=== PATIENT | female | born 1980 | race Caucasian/White ===

== ENCOUNTER 2021-08-19 20:50 | Inpatient (IN) | payer MEDICAID, SELFPAY ==
[2021-08-19 21:31] VITALS: BP 127/66; PULSE 98; RESP 30; TEMP 37.4; O2SAT 84
[2021-08-19 21:35] VITALS: O2SAT 94
--- NOTE | 2021-08-19 21:36 | XRR_ITS ---
PROCEDURE INFORMATION: Exam: XR Chest Exam date and time: 08/19/2021 9:36 PM Age: 41 years old Clinical indication: Cough and shortness of breath; Patient HX: Cough with SOB. Covid + on 08/14/2021. TECHNIQUE: Imaging protocol: XR of the chest. Views: 1 view. COMPARISON: No relevant prior studies available. FINDINGS: Lungs: Patchy scattered ground-glass opacities mostly peripheral in both lungs. Reduced lung volumes. Pleural spaces: Unremarkable. No pleural effusion. No pneumothorax. Heart/Mediastinum: Unremarkable. No cardiomegaly. Bones/joints: Unremarkable. XR/XR chest 1V portable [id number] IMPRESSION: Patchy airspace lesions in both lungs consistent with atypical pneumonia which would include COVID-19 infection.
--- NOTE | 2021-08-19 21:36 | ECG_ITS ---
[facility] Test Date: 2021-08-19 Pat Name: Rimma Vera Department: Room: Gender: Female Pcas: : 1980 Requested By: Jimmy Gilliam Order Number: [id number] Reading MD: TRACIE WOOD Measurements Intervals [place] Rate: 89 P: 18 WI: 166 QRS: 16 QRSD: 81 T: 19 QT: 346 QTc: 422 Interpretive Statements SINUS RHYTHM LOW QRS VOLTAGE IN PRECORDIAL LEADS [QRS DEFLECTION < 1.0 mV IN CHEST LEADS] No previous ECG available for comparison Electronically Signed On 08-20-2021 19:58:37 CONSTRUCTION MANAGEMENT ASSISTANT by TRACIE WOOD [id number]
[2021-08-19 21:37] VITALS: O2SAT 93
--- NOTE | 2021-08-19 21:51 | ED_ITS ---
HPI - COVID General: Chief Complaint: COVID symptoms Stated Complaint: Covid + SOB Time Seen by Provider: 08/19/21 21:30 Triage information: Has fever, cough or shortness of breath . Exposure to COVID + person last 14 days History of Present Illness: MD complaint: known COVID positive Prior covid testing: yes, results known COVID 19 common symptoms: positive fever(s), chills, cough, non-productive cough, dyspnea, fatigue, body aches, headache(s), loss of sense of smell and/or taste, nausea and diarrhea; negative vomiting COVID 19 other sytmptoms: positive chest pain and requiring oxygen; negative cyanosis or confusion Onset (ago): day(s) Severity: severe and slowly worsening Treatment prior to arrival: cold medicine COVID Results: No Data to Display Review of Systems Const: Reports: fever(s), chills, body aches and fatigue Card: Reports: chest pain Resp: Reports: dyspnea and non-productive cough GI: Reports: nausea and diarrhea; Denies: vomiting Neuro: Reports: headache(s); Denies: confusion PFSH ED PFSH: Social History Smoking and tobacco status: former smoker Physical Exam Const: COMMON NORMALS: patient oriented x3 and alert GENERAL APPEARANCE: cooperative, in distress and ill appearing HENMT: COMMON NORMALS: normocephalic and atraumatic HEAD & SCALP: normocephalic and atraumatic Eye: COMMON NORMALS: Equal, round and reactive pupils present and EOMs intact bilaterally PUPIL: Yes Equal, round and reactive pupils present Chest: COMMONS NORMALS: normal inspection of the chest Resp: COMMON NORMALS: clear to auscultation bilaterally EFFORT & INSPECTION: Yes tachypneic and Yes respiratory distress AUSCULTATION: clear to auscultation bilaterally and diminished lung sounds Cardio: COMMON NORMALS: regular rhythm RATE: tachycardic RHYTHM: regular rhythm GI: COMMON NORMALS: Normal to inspection, nondistended, normoactive bowel sounds present Neuro: COMMON NORMALS: patient oriented x3 SENSORIUM/ORIENTATION: Yes alert Course Consultations: Consultation #1: dayan Time: 00:57 Vital Signs: Vital signs: Vital Signs Temperature 99.3 F 08/19/21 21:31 Pulse Rate 100 08/20/21 00:25 Respiratory Rate 20 H 08/20/21 00:25 Blood Pressure 112/63 08/20/21 00:25 Pulse Oximetry 92 08/20/21 00:25 MDM - COVID MDM Narrative: Medical decision making narrative: 41-year-old female with known Covid. Worsening shortness of breath over the past few days. She is on 3 L now satting 90%. Her respiratory rate has come down from 40s to 20s. She is more comfortable. Chest x-ray shows bilateral infiltrates. D-dimer was elevated. CTA shows groundglass infiltrates that are widespread. No pneumothorax, no pulmonary embolus. Her white count is 3.1. BMP is essentially normal. CRP is elevated. She will come in for COVID-19 pneumonia. Lab Data: Labs: Lab Results 08/19/21 08/19/21 08/19/21 21:40 21:40 21:40 WBC 3.1 10^3/uL L 10^ 3/uL (4.0-10.0) RBC 4.84 10^6/uL 10^6 /uL (4.1-5.3) Hgb 13.1 g/dL g/dL (11.5-15.3) Hct 40.8 % % (37.0-47.0) MCV 84.3 fl fl (81-99) MCH 27.1 pg L pg (28.0-34.0) MCHC 32.1 g/dL g/dL (30.0-36.0) RDW 13.1 % % (12.1-15.1) Plt Count 167 10^3/cmm 10^3 /cmm (130-400) MPV 10.6 fL H fL (7.4-10.4) Neut % (Auto) 76.9 % % Lymph % (Auto) 17.7 % % [place] % (Auto) 5.1 % % Eos % (Auto) 0.0 % % Baso % (Auto) 0.0 % % Neut # (Auto) 2.39 10^3/uL 10^3 /uL (1.8-7.7) Lymph # (Auto) 0.6 10^3/uL L 10^ 3/uL (0.8-4.8) [place] # (Auto) 0.2 10^3/uL 10^3/ uL (0.2-0.9) Eos # (Auto) 0.0 10^3/uL 10^3/ uL (0.0-0.8) Baso # (Auto) 0.0 10^3/uL 10^3/ uL (0.0-0.1) Nucleated RBC % (a uto) 0 % % Nucleated RBCs # 0.0 /100WBC /100W BC D-Dimer 1.00 ug/mIFEU H u g/mIFEU (0-0.59) Sodium 134 mmol/L L mmol /L (136-145) Potassium 3.8 mmol/L mmol/L (3.5-5.1) Chloride 95 mmol/L L mmol/ L (98-107) Carbon Dioxide 23 mmol/L mmol/L (22-29) Anion Gap 19.8 H (5-19) BUN 6 mg/dL mg/dL (6-20) Creatinine 0.5 mg/dL mg/dL (0.5-0.9) GFR Calculation 136.6 mL/min H mL /min (90-130) Glucose 153 mg/dL H mg/dL (65-115) Calculated Osmolal ity 279 mOsm/kg L mOs m/kg (285-295) Lactic Acid Calcium 8.1 mg/dL L mg/dL (8.5-10.5) Total Bilirubin 0.4 mg/dL mg/dL (0.15-1.2) AST 48 U/L H U/L (0-32) ALT 24 U/L U/L (0-33) Alkaline Phosphata se 44 IU/L IU/L (35-105) Lactate Dehydrogen ase 468 U/L H U/L (135-214) Troponin T Gen 5 n g/L C-Reactive Protein 51.8 mg/L H mg/L (0.0-4.9) NT-Pro-B Natriuret Pep 14 pg/mL pg/mL (0-125) Total Protein 7.0 g/dL g/dL (6.6-8.7) Albumin 3.8 g/dL g/dL (3.5-5.2) Globulin 3.2 g/dL g/dL (1.3-4.6) Procalcitonin 0.07 ng/mL ng/mL (0-0.5) 08/19/21 08/19/21 21:40 21:40 WBC RBC Hgb Hct MCV MCH MCHC RDW Plt Count MPV Neut % (Auto) Lymph % (Auto) [place] % (Auto) Eos % (Auto) Baso % (Auto) Neut # (Auto) Lymph # (Auto) [place] # (Auto) Eos # (Auto) Baso # (Auto) Nucleated RBC % (a uto) Nucleated RBCs # D-Dimer Sodium Potassium Chloride Carbon Dioxide Anion Gap BUN Creatinine GFR Calculation Glucose Calculated Osmolal ity Lactic Acid 1.3 mmol/L mmol/L (0.5-2.2) Calcium Total Bilirubin AST ALT Alkaline Phosphata se Lactate Dehydrogen ase Troponin T Gen 5 n g/L 6 ng/L ng/L (0-10) C-Reactive Protein NT-Pro-B Natriuret Pep Total Protein Albumin Globulin Procalcitonin COVID Results: No Data to Display Discharge Plan Discharge Patient Disposition: Admitted As Inpatient Admit Provider: Shanna Zuleta Clinical Impression: Pneumonia due to 2019 novel coronavirus, Acute respiratory failure with hypoxemia Condition: Serious Coding Level of Care Code 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
[2021-08-19] MEDS: dexamethasone 4 mg/mL INJ 6 MG IVP (22:03)
[2021-08-19 22:16] VITALS: BP 112/63; PULSE 93; RESP 18; O2SAT 100
[2021-08-19 22:24] LABS: Hematocrit 40.8 % (37.0-47.0); Hemoglobin 13.1 g/dL (11.5-15.3); Lymphocytes # 0.6 10^3/uL (0.8-4.8); Lymphocytes % 17.7 %; Mean Corpuscular HGB Conc 32.1 g/dL (30.0-36.0); Mean Corpuscular Hemoglobin 27.1 pg (28.0-34.0); Mean Corpuscular Volume 84.3 fl (81-99); Mean Platelet Volume 10.6 fL (7.4-10.4); Monocytes # 0.2 10^3/uL (0.2-0.9); Monocytes % 5.1 %; Neutrophils # 2.39 10^3/uL (1.8-7.7); Neutrophils % 76.9 %; Nucleated Red Blood Cells % 0 %; Platelet Count 167 10^3/cmm (130-400); Red Blood Count 4.84 10^6/uL (4.1-5.3); Red Cell Distribution Width 13.1 % (12.1-15.1); White Blood Count 3.1 10^3/uL (4.0-10.0)
[2021-08-19 22:32] LABS: Troponin T (5th) Once 6 ng/L (0-10)
[2021-08-19 22:34] LABS: Lactic Sepsis W/Reflex 1.3 mmol/L (0.5-2.2)
[2021-08-19 22:36] LABS: Alanine Aminotransferase 24 U/L (0-33); Albumin Level 3.8 g/dL (3.5-5.2); Alkaline Phosphatase 44 IU/L (35-105); Anion Gap 19.8 (5-19); Aspartate Amino Transferase 48 U/L (0-32); Blood Urea Nitrogen 6 mg/dL (6-20); C Reactive Protein 51.8 mg/L (0.0-4.9); Calcium 8.1 mg/dL (8.5-10.5); Carbon Dioxide 23 mmol/L (22-29); Chloride 95 mmol/L (98-107); Globulin 3.2 g/dL (1.3-4.6); Glomerular Filtration Rate 136.6 mL/min (90-130); Glucose 153 mg/dL (65-115); Lactate Dehydrogenase 468 U/L (135-214); Osmolality Calculated 279 mOsm/kg (285-295); Potassium 3.8 mmol/L (3.5-5.1); Sodium 134 mmol/L (136-145); Total Bilirubin 0.4 mg/dL (0.15-1.2)
[2021-08-19 23:21] LABS: Slide Review Slide Review Perform
--- NOTE | 2021-08-19 23:45 | CTR_ITS ---
PROCEDURE INFORMATION: Exam: CTA Chest With Contrast Exam date and time: 08/19/2021 11:45 PM Age: 41 years old Clinical indication: Cough and shortness of breath; Patient HX: Cough with SOB. Elevated dimer. Covid +. ; Additional info: Chest pain TECHNIQUE: Imaging protocol: Computed tomographic angiography of the chest with contrast. 3D rendering (Not supervised by radiologist): MIP and/or 3D reconstructed images were created by the technologist. Radiation optimization: All CT scans at this facility use at least one of these dose optimization techniques: automated exposure control; mA and/or kV adjustment per patient size (includes targeted exams where dose is matched to clinical indication); or iterative reconstruction. Contrast material: OMNI 350; Contrast volume: 95 ml; Contrast route: INTRAVENOUS (IV); COMPARISON: CR (CHEST, ) 08/19/2021 10:20 PM RADIATION DOSE METRICS: Total DLP (mGy-cm): 1121.43 FINDINGS: Pulmonary arteries: Normal. No pulmonary emboli. Aorta: Unremarkable. No aortic aneurysm. No aortic dissection. Lungs: Patchy irregular ground-glass lesions widely distributed throughout both lungs. Negative for endobronchial obstruction. Reduced lung volumes. Pleural spaces: Unremarkable. No pneumothorax. No pleural effusion. Heart: Unremarkable. No cardiomegaly. No pericardial effusion. Lymph nodes: Unremarkable. No enlarged lymph nodes. Bones/joints: Unremarkable. No acute fracture. Soft tissues: Unremarkable. CT/CT angio chest PE protcl [id number] IMPRESSION: 1. Negative for pulmonary embolism. 2. Widespread ground-glass airspace disease in both lungs. 3. Commonly reported imaging features of COVID-19 pneumonia are present. Other processes such as influenza pneumonia and organizing pneumonia, as can be seen with drug toxicity and connective tissue disease, can cause a similar imaging pattern. (Reference: Oskar) REFERENCES: Oskar Crockett, et al., Radiological Society of [place] Expert Consensus Statement on Reporting Chest CT Findings Related to COVID-19. Endorsed by the Society of Thoracic Radiology, the [place] [employer], and RSNA. Published November 25, 2019.
[2021-08-19 23:47] LABS: NT Pro B Type Natriuretic Pept 14 pg/mL (0-125); Procalcitonin 0.07 ng/mL (0-0.5)
[2021-08-20] VITALS (18 sets, daily range): BP systolic 109–145; BP diastolic 63–88; PULSE 79–102; RESP 15–24; TEMP 36.6–37.5; O2SAT 88–93; BMI 44.2
[2021-08-20] MEDS: iohexol 350 mg/mL 100 mL Btl IV (00:15)
--- NOTE | 2021-08-20 01:12 | PM.HP ---
Providers/Chief Complaint Admitting Physician: Shanna Zuleta MD Chief Complaint: Covid + SOB History of Present Illness Rimma Vera is a 41 year old female , tested COVID positive earlier this week, presenting with shortness of breath, hypoxia, new oxygen requirement of 3lpm on NC. ROS + for diarrhea, nausea. CTA chest performed due to elevated D dimer, shows B/L extensive infiltrates c/w COVID pneumonia. Review of Systems General: Reports: 10 or more systems reviewed and unremarkable except in HPI and below Const: Denies: fever(s), chills or body aches Eyes: Denies: change in vision, blurry vision or photophobia ENMT: Denies: throat pain, enlarged tonsils, odynophagia or nasal congestion Card: Denies: chest pain, palpitations, irregular heart rhythm, edema, swelling of feet/ankles, lightheadedness, pre-syncope, dyspnea on exertion or orthopnea Resp: Denies: dyspnea, productive cough, non-productive cough, wheezing, stridor, pain on inspiration, change in phlegm color, hemoptysis or chest congestion GI: Denies: abdominal pain, nausea, vomiting, hematemesis, coffee ground emesis, dysphagia, heartburn, diarrhea, constipation, GI cramping, change in stool character, hematochezia or melena : Denies: flank pain, difficulty voiding, dysuria, urinary frequency, urinary urgency, urinary hesitancy or hematuria Musc: Denies: neck pain, back pain, extremity pain, joint swelling, joint warmth or deformity Neuro: Denies: headache(s), numbness in extremities, weakness in extremities, sensory changes, difficulty walking, frequent falls, dizziness, vertigo, behavioral changes, Slurred speech present or seizure-like activity Psych: Denies: anxiety, depression, suicidal ideation or homicidal ideation Endo: Denies: polyuria, polydipsia, tired all the time, cold intolerance or hot flashes Drew/Lymph: Denies: easy bruising or easy bleeding Medications/Allergies Home Medications Medication Instructions Recorded Confirmed Last Taken Type methocarbamol 750 mg tablet 750 mg PO TID 5 Days #15 tab 07/25/21 07/25/21 Unknown Rx prednisone 10 mg tablet 30 mg PO DAILY 5 Days #15 tab 07/25/21 07/25/21 Unknown Rx Allergies Allergy/AdvReac Type Severity Reaction Status Date / Time No Known Allergies Allergy Verified 07/25/21 11:11 PFSH Acute PFSH: Social History Smoking and tobacco status: former smoker Vitals/I&O/Wt Last Vital Signs Temp 99.3 F 08/19/21 21:31 Pulse 100 08/20/21 00:25 Resp 20 H 08/20/21 00:25 BP 112/63 08/20/21 00:25 Pulse Ox 92 08/20/21 00:25 Physical Exam Narrative: EXAM NARRATIVE: General: No acute distress, AO x3 HEENT: PERRLA, pupils bilaterally equal and reactive, pallors not present Chest: B/L coarse breath sounds CVS: S1-S2 regular, no murmurs, no tachycardia, no gallops, no rubs Abdomen: Soft, nontender, no organomegaly, bowel sounds present Neuro: No focal deficits, no facial deformity, AO x3, power 5/5 in all limbs Data : 08/19/21 21:40 08/19/21 21:40 Micro: Microbiology 08/19/21 21:50 Blood Culture - Preliminary Blood SPECIMEN COLLECTED 08/19/21 21:40 Blood Culture - Preliminary Blood SPECIMEN COLLECTED A&P Assessment and plan (1) Pneumonia due to 2019 novel coronavirus: Admit to med/surg Remdisivir 200mg iv x 1 followed by 100mg iv daily dexamethasone 6mg IVP daily duoneb q6h, budesonide q12h empiric CTX and azithromycin Flutter valve/spirometer at bedside trend inflammatory markers including CRP, D dimer CTA negative for PE Status: Acute (2) Acute respiratory failure with hypoxemia: secondary to COVID 19 pneumonia Status: Acute Attestations Medical Necessity Statement*: anticipate >2midnight admission for management of COVID 19 pneumonia Coding Level of Care Code 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
[2021-08-20] MEDS: cefTRIAXone 1,000 MG in sodium chloride 0.9% (plus) 50 ML 100 MG IV (01:29)
[2021-08-20] MEDS: enoxaparin 40 mg/0.4 mL Syringe SUBCUT (01:29)
[2021-08-20] MEDS: sodium chloride 0.9% 1,000 ML 75 ML IV (02:18)
[2021-08-20] MEDS: azithromycin 500 MG in sodium chloride 0.9% 250 ML 250 MG PO (02:46)
[2021-08-20] MEDS: ipratropium-albuterol 3 mL Neb INHALATION ×4 (03:11→14:29)
[2021-08-20 03:12] LABS: SARS Covid-2 Antigen Negative (Negative)
[2021-08-20] MEDS: remdesivir 200 MG in sodium chloride 0.9% (100 ml) 100 ML 100 MG IV (03:47)
[2021-08-20 06:27] LABS: Procalcitonin 0.07 ng/mL (0-0.5)
[2021-08-20 06:28] LABS: Alanine Aminotransferase 23 U/L (0-33); Albumin Level 3.2 g/dL (3.5-5.2); Alkaline Phosphatase 42 IU/L (35-105); Aspartate Amino Transferase 41 U/L (0-32); Blood Urea Nitrogen 6 mg/dL (6-20); Calcium 7.8 mg/dL (8.5-10.5); Carbon Dioxide 20 mmol/L (22-29); Chloride 99 mmol/L (98-107); Globulin 3.5 g/dL (1.3-4.6); Glomerular Filtration Rate 176.8 mL/min (90-130); Glucose 303 mg/dL (65-115); Osmolality Calculated 291 mOsm/kg (285-295); Sodium 136 mmol/L (136-145); Total Bilirubin 0.4 mg/dL (0.15-1.2); Total Protein 6.7 g/dL (6.6-8.7)
[2021-08-20 06:50] LABS: D Dimer 0.82 ug/mIFEU (0-0.59)
[2021-08-20] MEDS: pantoprazole DR 40 mg Tablet PO (09:25)
[2021-08-20] MEDS: budesonide 0.5 mg/2 mL Neb INHALATION ×2 (09:53→20:51)
--- NOTE | 2021-08-20 14:57 | P.PN_ITS ---
Subjective Subjective: Interval history: Admitted overnight. On examination lying comfortably in bed on 3 to 4 L oxygen supplementation saturating 92%. Denies nausea vomiting, headache. States feeling better now. Vitals/I&O/Wt Last Vital Signs Temp 98.4 F 08/20/21 12:00 Pulse 90 08/20/21 14:34 Resp 18 08/20/21 14:34 BP 126/72 08/20/21 12:00 Pulse Ox 92 08/20/21 14:34 08/19/21 08/20/21 08/20/21 22:59 06:59 14:59 Intake Total 520 / 520 921.25 / 921.25 Balance 520 / 520 921.25 / 921.25 Weight last 48 hrs Weight 113.398 kg Physical Exam Narrative: EXAM NARRATIVE: General: No acute distress, AO x3 HEENT: PERRLA, pupils bilaterally equal and reactive, pallors not present Chest: B/L coarse breath sounds CVS: S1-S2 regular, no murmurs, no tachycardia, no gallops, no rubs Abdomen: Soft, nontender, no organomegaly, bowel sounds present Neuro: No focal deficits, no facial deformity, AO x3, power 5/5 in all limbs Data : 08/19/21 21:40 08/20/21 05:12 Micro: Microbiology 08/19/21 21:50 Blood Culture - Preliminary Blood SPECIMEN COLLECTED 08/19/21 21:40 Blood Culture - Preliminary Blood SPECIMEN COLLECTED A&P Assessment and plan (1) Pneumonia due to 2019 novel coronavirus: Hypoxia secondary to COVID-19 pneumonia: Mild to moderate disease. Oxygen supplementation keeping saturation over 88%. Dexamethasone 6 mg daily. Remdesivir to finish a 5-day course. Vitamin C, zinc. DuoNeb 6-hour, budesonide twice daily Pulmonary toilet with incentive spirometry flutter valve. We will monitor inflammatory markers including CRP, D-dimer every 48 hourly. If getting elevated will dose Actemra. Patient was made aware of the same and he has given verbal consent. D-dimer negative. CTA negative for embolism. Lovenox at prophylactic dose. Will monitor for anemia or blood loss. For now continue with empiric therapy for community-acquired pneumonia with ceftriaxone and azithromycin. Given hypoxia will try to keep patient as negative as possible. Strict input output charting, daily weights. Status: Acute (2) Acute respiratory failure with hypoxemia: secondary to COVID 19 pneumonia Status: Acute Additional A&P Information Check HbA1c, lipid panel, TSH, TIBC. Insulin sliding scale. Full code. Lovenox for DVT prophylaxis per Protonix for PUD prophylaxis. Regular diet. Attestations Medical Necessity Statement*: Requires further hospitalization for management of hypoxia secondary COVID-19 pneumonia Time Spent in Patient Care: Greater than 35 minutes (>than 50% of time spent in counselling and/or direct pt care on unit) . 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
[2021-08-20] MEDS: benzonatate 100 mg Capsule PO ×2 (15:16→20:43)
[2021-08-20] MEDS: ferrous gluconate 324 mg Tablet PO (16:35)
[2021-08-20 18:50] LABS: Iron 28 ug/dL (37-145); Percent Saturation 13.7 % (20-50); Thyroid Stimulating Hormone 0.55 uIU/mL (0.27-4.20); Total Iron Binding Capacity 203 mcg/dl; Unsaturated Iron Binding 175 ug/dL (112-347)
[2021-08-20 19:03] LABS: Glucose Point of Care 268 mg/dL (70-110)
[2021-08-20 20:59] LABS: Glucose Point of Care 287 mg/dL (70-110)
[2021-08-20 21:46] LABS: Glucose Urine UA Trace (Normal); Ketones Urine 1+ (Negative); Protein Urine Trace (Negative); Specific Gravity, Urine 1.005 (1.005-1.030); Urine Appearance Clear (CLEAR); Urine Color Yellow (Yellow); pH Urine 7 (5-7)
[2021-08-20 21:47] LABS: Add Urine Microscopic? YES; Bilirubin Urine Neg (Negative); Blood Urine 3+ (Negative); Leukocyte Esterase Urine Negative (Negative); Nitrate Urine Negative (Negative); Urobilinogen Urine Norm (Negative)
[2021-08-20 21:52] LABS: Add Urine Culture? No; Bacteria Urine 2+ /hpf; RBC Urine >100 /hpf (0-2); WBC Urine 0-4 /hpf (0-5)
[2021-08-20] MEDS: dexamethasone 10 mg/mL INJ 6 MG IVP (22:31)
[2021-08-21] VITALS (17 sets, daily range): BP systolic 113–141; BP diastolic 71–81; PULSE 73–108; RESP 16–24; TEMP 36.4–36.8; O2SAT 88–94
[2021-08-21] MEDS: cefTRIAXone 1,000 MG in sodium chloride 0.9% (plus) 50 ML 100 MG IV (00:39)
[2021-08-21] MEDS: enoxaparin 40 mg/0.4 mL Syringe SUBCUT (00:39)
[2021-08-21] MEDS: azithromycin 500 MG in sodium chloride 0.9% 250 ML 250 MG PO (01:16)
[2021-08-21] MEDS: ipratropium-albuterol 3 mL Neb INHALATION ×4 (02:54→20:00)
[2021-08-21 03:14] LABS: Hematocrit 37.4 % (37.0-47.0); Hemoglobin 12.2 g/dL (11.5-15.3); Lymphocytes # 0.4 10^3/uL (0.8-4.8); Lymphocytes % 18.4 %; Mean Corpuscular HGB Conc 32.6 g/dL (30.0-36.0); Mean Corpuscular Hemoglobin 27.5 pg (28.0-34.0); Mean Corpuscular Volume 84.4 fl (81-99); Mean Platelet Volume 10.5 fL (7.4-10.4); Monocytes # 0.2 10^3/uL (0.2-0.9); Monocytes % 7.9 %; Neutrophils # 1.66 10^3/uL (1.8-7.7); Neutrophils % 72.8 %; Nucleated Red Blood Cells % 0 %; Platelet Count 175 10^3/cmm (130-400); Red Blood Count 4.43 10^6/uL (4.1-5.3); Red Cell Distribution Width 12.8 % (12.1-15.1); White Blood Count 2.3 10^3/uL (4.0-10.0)
[2021-08-21 03:34] LABS: D Dimer 0.68 ug/mIFEU (0-0.59)
[2021-08-21 03:38] LABS: C Reactive Protein 23.8 mg/L (0.0-4.9); Chol HDL Ratio 4.14 mg/dL (0.0-4.40); Cholesterol 120 mg/dL (0-200); HDL Cholesterol 29 mg/dL (60-100); LDL Cholesterol Calculated 75 mg/dL (50-129); Triglycerides 81 mg/dL (0-150); VLDL Cholestrol Calculation 16 mg/dL (0-30)
[2021-08-21 03:41] LABS: Alanine Aminotransferase 25 U/L (0-33); Albumin Level 3.1 g/dL (3.5-5.2); Alkaline Phosphatase 41 IU/L (35-105); Anion Gap 18.4 (5-19); Aspartate Amino Transferase 36 U/L (0-32); Blood Urea Nitrogen 9 mg/dL (6-20); Calcium 7.9 mg/dL (8.5-10.5); Carbon Dioxide 21 mmol/L (22-29); Chloride 102 mmol/L (98-107); Globulin 3.4 g/dL (1.3-4.6); Glomerular Filtration Rate 176.8 mL/min (90-130); Glucose 305 mg/dL (65-115); Osmolality Calculated 294 mOsm/kg (285-295); Potassium 4.4 mmol/L (3.5-5.1); Sodium 137 mmol/L (136-145); Total Bilirubin 0.2 mg/dL (0.15-1.2); Total Protein 6.5 g/dL (6.6-8.7)
[2021-08-21 03:43] LABS: Estmated Average Glucose 235; Hemoglobin A1C 9.8 % (4.0-6.0)
[2021-08-21 04:12] LABS: Slide Review Slide Review Perform
[2021-08-21] MEDS: remdesivir 100 MG in sodium chloride 0.9% (100 ml) 100 ML IV (05:32)
[2021-08-21 06:44] LABS: Glucose Point of Care 338 mg/dL (70-110)
[2021-08-21] MEDS: pantoprazole DR 40 mg Tablet PO (09:17)
[2021-08-21] MEDS: ferrous gluconate 324 mg Tablet PO ×2 (09:17→17:54)
[2021-08-21] MEDS: benzonatate 100 mg Capsule PO ×3 (09:18→20:27)
[2021-08-21] MEDS: budesonide 0.5 mg/2 mL Neb INHALATION ×2 (10:09→19:56)
[2021-08-21 12:07] LABS: Glucose Point of Care 416 mg/dL (70-110)
[2021-08-21] MEDS: insulin lispro 100 unit/1 mL SUBCUT ×3 (13:23→20:27)
[2021-08-21 15:04] LABS: Add Urine Microscopic? YES; Bilirubin Urine Neg (Negative); Blood Urine 3+ (Negative); Glucose Urine UA 4+ (Normal); Ketones Urine 1+ (Negative); Leukocyte Esterase Urine Negative (Negative); Nitrate Urine Negative (Negative); Protein Urine Neg (Negative); Specific Gravity, Urine 1.005 (1.005-1.030); Urine Appearance Hazy (CLEAR); Urine Color Straw (Yellow); Urobilinogen Urine Norm (Negative); pH Urine 7 (5-7)
[2021-08-21 15:05] LABS: RBC Urine 40-50 /hpf (0-2)
[2021-08-21 15:06] LABS: Add Urine Culture? Yes; Bacteria Urine TRACE /hpf; WBC Urine 0-4 /hpf (0-5)
[2021-08-21 17:10] LABS: Glucose Point of Care 273 mg/dL (70-110)
--- NOTE | 2021-08-21 18:16 | PM.PN ---
Subjective Subjective: Interval history: Having bouts of cough. No chest pain. No nausea or vomiting. Soft bowel movement, not diarrhea. Vitals/I&O/Wt Last Vital Signs Temp 98.1 F 08/21/21 15:57 Pulse 92 08/21/21 15:57 Resp 16 08/21/21 15:57 BP 118/77 08/21/21 15:57 Pulse Ox 89 L 08/21/21 15:57 08/21/21 08/21/21 08/21/21 06:59 14:59 22:59 Intake Total 400 / 1901.25 240 / 240 Output Total 350 / 350 600 / 600 Balance 50 / 1551.25 240 / 240 -600 / -360 Weight last 48 hrs Weight 113.398 kg Physical Exam Const: COMMON NORMALS: no acute distress, patient oriented x3 and alert NUTRITIONAL APPEARANCE: obese ORIENTATION/CONSCIOUSNESS: Yes awake HENMT: COMMON NORMALS: oropharynx normal Neck/C-Spine: COMMON NORMALS: no JVD Resp: COMMON NORMALS: normal respiratory effort and clear to auscultation bilaterally AUSCULTATION: clear to auscultation bilaterally Cardio: COMMON NORMALS: no JVD, regular rhythm, S1 normal heart sound present, S2 normal heart sound present and No murmurs present (Cardio) RHYTHM: regular rhythm HEART SOUNDS: S1 normal heart sound present and S2 normal heart sound present GI: COMMON NORMALS: Normal to inspection, nondistended, normoactive bowel sounds present, Soft to palpation and non-tender PALPATION: Yes Soft to palpation Extremity: COMMON NORMALS: no joint enlargement and no pedal edema Neuro: COMMON NORMALS: patient oriented x3 and moves all extremities SENSORIUM/ORIENTATION: Yes alert Skin: COMMON NORMALS: no rashes or lesions noted GENERAL SKIN EXAM: no rashes or lesions noted Data : 08/21/21 02:32 08/21/21 02:32 Micro: Microbiology 08/19/21 21:50 Blood Culture - Preliminary Blood NEGATIVE TO DATE 08/19/21 21:40 Blood Culture - Preliminary Blood NEGATIVE TO DATE 08/20/21 11:20 MRSA Culture - Final Nose A&P Assessment and plan (1) Pneumonia due to 2019 novel coronavirus: Persistently requiring 4 L of oxygen by nasal cannula. Continue treatment with remdesivir, Decadron. Prophylactic Lovenox. Continue oxygen support. Additional antitussive. Supportive care. Encouraged I-S. Recheck D-dimer, CRP. CTA negative for embolism. Empiric therapy for community-acquired pneumonia with ceftriaxone and azithromycin. Status: Acute (2) Acute respiratory failure with hypoxemia: secondary to COVID 19 pneumonia Status: Acute Additional A&P Information HbA1c 9.8, Change to diabetic diet. Insulin sliding scale. Normal TSH, Iron deficiency: check hemoccult Attestations Medical Necessity Statement*: Continue admission for assessment management of severe COVID-19. Hypoxic respiratory failure. 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
[2021-08-21 20:31] LABS: Glucose Point of Care 296 mg/dL (70-110)
[2021-08-21] MEDS: dexamethasone 10 mg/mL INJ 6 MG IVP (21:18)
[2021-08-22] VITALS (15 sets, daily range): BP systolic 104–126; BP diastolic 67–77; PULSE 63–112; RESP 16–24; TEMP 36.6–37.1; O2SAT 90–96
[2021-08-22] MEDS: cefTRIAXone 1,000 MG in sodium chloride 0.9% (plus) 50 ML 100 MG IV (01:30)
[2021-08-22] MEDS: enoxaparin 40 mg/0.4 mL Syringe SUBCUT (01:31)
[2021-08-22] MEDS: azithromycin 500 MG in sodium chloride 0.9% 250 ML 250 MG PO (02:09)
[2021-08-22] MEDS: ipratropium-albuterol 3 mL Neb INHALATION ×4 (03:07→20:28)
[2021-08-22] MEDS: remdesivir 100 MG in sodium chloride 0.9% (100 ml) 100 ML IV (05:16)
[2021-08-22 06:00] LABS: Basophils % 0.3 %; Hematocrit 36.8 % (37.0-47.0); Lymphocytes # 0.6 10^3/uL (0.8-4.8); Lymphocytes % 18.9 %; Mean Corpuscular HGB Conc 32.6 g/dL (30.0-36.0); Mean Corpuscular Hemoglobin 27.1 pg (28.0-34.0); Mean Corpuscular Volume 83.3 fl (81-99); Monocytes # 0.2 10^3/uL (0.2-0.9); Monocytes % 6.2 %; Neutrophils % 72.2 %; Nucleated Red Blood Cells % 0 %; Platelet Count 237 10^3/cmm (130-400); Red Blood Count 4.42 10^6/uL (4.1-5.3); Red Cell Distribution Width 12.8 % (12.1-15.1); White Blood Count 2.9 10^3/uL (4.0-10.0)
[2021-08-22 06:13] LABS: Alanine Aminotransferase 27 U/L (0-33); Alkaline Phosphatase 40 IU/L (35-105); Anion Gap 19.3 (5-19); Aspartate Amino Transferase 28 U/L (0-32); Blood Urea Nitrogen 9 mg/dL (6-20); C Reactive Protein 10.7 mg/L (0.0-4.9); Calcium 7.7 mg/dL (8.5-10.5); Carbon Dioxide 19 mmol/L (22-29); Chloride 101 mmol/L (98-107); Globulin 3.1 g/dL (1.3-4.6); Glomerular Filtration Rate 176.8 mL/min (90-130); Glucose 348 mg/dL (65-115); Osmolality Calculated 293 mOsm/kg (285-295); Potassium 4.3 mmol/L (3.5-5.1); Sodium 135 mmol/L (136-145); Total Bilirubin 0.3 mg/dL (0.15-1.2); Total Protein 6.1 g/dL (6.6-8.7)
[2021-08-22 06:17] LABS: D Dimer 0.48 ug/mIFEU (0-0.59)
[2021-08-22 06:49] LABS: Glucose Point of Care 372 mg/dL (70-110)
[2021-08-22 07:30] LABS: Slide Review Slide Review Perform
[2021-08-22] MEDS: budesonide 0.5 mg/2 mL Neb INHALATION ×2 (08:25→20:28)
[2021-08-22] MEDS: pantoprazole DR 40 mg Tablet PO (08:36)
[2021-08-22] MEDS: benzonatate 100 mg Capsule PO ×3 (08:36→20:07)
[2021-08-22] MEDS: insulin lispro 100 unit/1 mL SUBCUT ×4 (08:36→21:56)
[2021-08-22] MEDS: ferrous gluconate 324 mg Tablet PO ×2 (08:36→17:15)
[2021-08-22] MEDS: guaiFENesin-dextromethorphan UDC 10 mL PO ×2 (08:37→14:30)
[2021-08-22 12:19] LABS: Glucose Point of Care 350 mg/dL (70-110)
[2021-08-22 16:52] LABS: Glucose Point of Care 290 mg/dL (70-110)
--- NOTE | 2021-08-22 20:59 | P.PN_ITS ---
Subjective Subjective: Interval history: She is doing about the same. Still having some cough. We have requested additional cough medicines for her. Denies headache, chest pain, nausea vomiting or diarrhea. Vitals/I&O/Wt Last Vital Signs Temp 98.5 F 08/22/21 20:00 Pulse 89 08/22/21 20:40 Resp 18 08/22/21 20:32 BP 108/70 08/22/21 20:00 Pulse Ox 94 08/22/21 20:32 08/22/21 08/22/21 08/22/21 06:59 14:59 22:59 Intake Total 300 / 900 700 / 700 360 / 1060 Output Total 1300 / 1900 Balance -1000 / -1000 700 / 700 360 / 1060 Physical Exam Const: COMMON NORMALS: no acute distress, patient oriented x3 and alert NUTRITIONAL APPEARANCE: obese ORIENTATION/CONSCIOUSNESS: Yes awake HENMT: COMMON NORMALS: oropharynx normal Neck/C-Spine: COMMON NORMALS: no JVD Resp: COMMON NORMALS: normal respiratory effort and clear to auscultation bilaterally AUSCULTATION: clear to auscultation bilaterally Cardio: COMMON NORMALS: no JVD, regular rhythm, S1 normal heart sound present, S2 normal heart sound present and No murmurs present (Cardio) RHYTHM: regular rhythm HEART SOUNDS: S1 normal heart sound present and S2 normal heart sound present GI: COMMON NORMALS: Normal to inspection, nondistended, normoactive bowel sounds present, Soft to palpation and non-tender PALPATION: Yes Soft to palpation Extremity: COMMON NORMALS: no joint enlargement and no pedal edema Neuro: COMMON NORMALS: patient oriented x3 and moves all extremities SENSORIUM/ORIENTATION: Yes alert Skin: COMMON NORMALS: no rashes or lesions noted GENERAL SKIN EXAM: no rashes or lesions noted Data : 08/22/21 05:00 08/22/21 05:00 Micro: Microbiology 08/21/21 14:40 Urine Culture - Preliminary Urine,Clean Catch A&P Assessment and plan (1) Pneumonia due to 2019 novel coronavirus: Discussed with her worsening hypoxia, up to 6 L nasal cannula requirement currently. Discussed with her concern for some gradually worsening condition, not yet ready to return home. Continue treatment with remdesivir, Decadron. Prophylactic Lovenox. Continue oxygen support. Antitussive. Supportive care. I-S. Recheck D-dimer, CRP. CTA negative for embolism. Empiric therapy for community-acquired pneumonia with ceftriaxone and azithromycin. Status: Acute (2) Acute respiratory failure with hypoxemia: secondary to COVID 19 pneumonia Status: Acute Additional A&P Information HbA1c 9.8, Change to diabetic diet. Insulin sliding scale. 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
[2021-08-22 21:25] LABS: Glucose Point of Care 229 mg/dL (70-110)
[2021-08-22] MEDS: dexamethasone 10 mg/mL INJ 6 MG IVP (21:56)
[2021-08-23] VITALS (17 sets, daily range): BP systolic 107–123; BP diastolic 69–79; PULSE 60–104; RESP 17–22; TEMP 36.7–36.9; O2SAT 91–97
[2021-08-23] MEDS: cefTRIAXone 1,000 MG in sodium chloride 0.9% (plus) 50 ML 100 MG IV (02:06)
[2021-08-23] MEDS: enoxaparin 40 mg/0.4 mL Syringe SUBCUT (02:06)
[2021-08-23] MEDS: ipratropium-albuterol 3 mL Neb INHALATION ×4 (02:30→20:48)
[2021-08-23 05:39] LABS: Basophils % 0.2 %; Hematocrit 37.4 % (37.0-47.0); Hemoglobin 12.1 g/dL (11.5-15.3); Lymphocytes # 0.7 10^3/uL (0.8-4.8); Lymphocytes % 15.8 %; Mean Corpuscular HGB Conc 32.4 g/dL (30.0-36.0); Mean Corpuscular Hemoglobin 27.3 pg (28.0-34.0); Mean Corpuscular Volume 84.4 fl (81-99); Mean Platelet Volume 10.6 fL (7.4-10.4); Monocytes # 0.3 10^3/uL (0.2-0.9); Neutrophils # 3.38 10^3/uL (1.8-7.7); Neutrophils % 75.3 %; Nucleated Red Blood Cells % 0 %; Platelet Count 245 10^3/cmm (130-400); Red Blood Count 4.43 10^6/uL (4.1-5.3); Red Cell Distribution Width 12.8 % (12.1-15.1); White Blood Count 4.5 10^3/uL (4.0-10.0)
[2021-08-23 05:50] LABS: D Dimer 0.51 ug/mIFEU (0-0.59)
[2021-08-23 05:58] LABS: C Reactive Protein 7.2 mg/L (0.0-4.9)
[2021-08-23 06:02] LABS: Alanine Aminotransferase 31 U/L (0-33); Albumin Level 3.1 g/dL (3.5-5.2); Alkaline Phosphatase 40 IU/L (35-105); Anion Gap 18.4 (5-19); Aspartate Amino Transferase 30 U/L (0-32); Blood Urea Nitrogen 9 mg/dL (6-20); Calcium 7.8 mg/dL (8.5-10.5); Carbon Dioxide 20 mmol/L (22-29); Chloride 100 mmol/L (98-107); Globulin 3.1 g/dL (1.3-4.6); Glomerular Filtration Rate 176.8 mL/min (90-130); Glucose 342 mg/dL (65-115); Osmolality Calculated 290 mOsm/kg (285-295); Potassium 4.4 mmol/L (3.5-5.1); Sodium 134 mmol/L (136-145); Total Bilirubin 0.3 mg/dL (0.15-1.2); Total Protein 6.2 g/dL (6.6-8.7)
[2021-08-23] MEDS: remdesivir 100 MG in sodium chloride 0.9% (100 ml) 100 ML IV (06:03)
[2021-08-23 06:30] LABS: Slide Review Slide Review Perform
[2021-08-23 06:54] LABS: Glucose Point of Care 308 mg/dL (70-110)
[2021-08-23] MEDS: ferrous gluconate 324 mg Tablet PO ×2 (09:23→17:44)
[2021-08-23] MEDS: benzonatate 100 mg Capsule PO ×3 (09:23→20:35)
[2021-08-23] MEDS: pantoprazole DR 40 mg Tablet PO (09:24)
[2021-08-23] MEDS: insulin lispro 100 unit/1 mL SUBCUT ×4 (09:24→20:35)
[2021-08-23] MEDS: budesonide 0.5 mg/2 mL Neb INHALATION ×2 (10:12→20:48)
[2021-08-23 11:12] LABS: Glucose Point of Care 320 mg/dL (70-110)
--- NOTE | 2021-08-23 14:35 | P.PN_ITS ---
Subjective Subjective: Interval history: She has been getting up little bit more out of bed. Not getting quite as drained as before. Denies headache, chest pain or pressure. No nausea vomiting or diarrhea. Vitals/I&O/Wt Last Vital Signs Temp 98.4 F 08/23/21 11:05 Pulse 104 H 08/23/21 11:05 Resp 18 08/23/21 11:05 BP 113/71 08/23/21 11:05 Pulse Ox 91 08/23/21 11:05 08/22/21 08/23/21 08/23/21 22:59 06:59 14:59 Intake Total 600 / 1300 530 / 1830 340 / 340 Output Total 2009 Balance 600 / 1300 -1480 / -180 340 / 340 Physical Exam Const: COMMON NORMALS: no acute distress, patient oriented x3 and alert NUTRITIONAL APPEARANCE: obese ORIENTATION/CONSCIOUSNESS: Yes awake HENMT: COMMON NORMALS: oropharynx normal Neck/C-Spine: COMMON NORMALS: no JVD Resp: COMMON NORMALS: normal respiratory effort and clear to auscultation bilaterally AUSCULTATION: clear to auscultation bilaterally Cardio: COMMON NORMALS: no JVD, regular rhythm, S1 normal heart sound present, S2 normal heart sound present and No murmurs present (Cardio) RHYTHM: regular rhythm HEART SOUNDS: S1 normal heart sound present and S2 normal heart sound present GI: COMMON NORMALS: Normal to inspection, nondistended, normoactive bowel sounds present, Soft to palpation and non-tender PALPATION: Yes Soft to palpation Extremity: COMMON NORMALS: no joint enlargement and no pedal edema Neuro: COMMON NORMALS: patient oriented x3 and moves all extremities SENSORIUM/ORIENTATION: Yes alert Skin: COMMON NORMALS: no rashes or lesions noted GENERAL SKIN EXAM: no rashes or lesions noted Data : 08/23/21 04:57 08/23/21 04:57 Micro: Microbiology 08/21/21 14:40 Urine Culture - Final Urine,Clean Catch A&P Assessment and plan (1) Pneumonia due to 2019 novel coronavirus: Hypoxia slightly better today. Down to 5 L. Continue to wean down oxygen supplementation. Discussed with her may be nearing possibility of discharge if oxygenation continues to improve as she is asking for discharge home. Continue treatment with remdesivir, Decadron. Prophylactic Lovenox. Antitussive. Supportive care. I-S. Recheck D-dimer, CRP. CTA negative for embolism. Empiric therapy for community-acquired pneumonia with ceftriaxone and azithromycin. Status: Acute (2) Acute respiratory failure with hypoxemia: secondary to COVID 19 pneumonia Status: Acute Additional A&P Information HbA1c 9.8, Change to diabetic diet. Insulin sliding scale. Normal TSH, Iron deficiency: requested hemoccult. Iron replacement. Attestations Medical Necessity Statement*: Continue admission for hypoxic respiratory failure with severe COVID-19. 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
[2021-08-23 16:48] LABS: Glucose Point of Care 353 mg/dL (70-110)
[2021-08-23 20:26] LABS: Glucose Point of Care 307 mg/dL (70-110)
[2021-08-23] MEDS: dexamethasone 10 mg/mL INJ 6 MG IVP (20:35)
[2021-08-24] VITALS (10 sets, daily range): BP systolic 113–138; BP diastolic 72–82; PULSE 62–119; RESP 16–22; TEMP 36.7–36.9; O2SAT 87–96
[2021-08-24] MEDS: cefTRIAXone 1,000 MG in sodium chloride 0.9% (plus) 50 ML 100 MG IV (00:20)
[2021-08-24] MEDS: enoxaparin 40 mg/0.4 mL Syringe SUBCUT (00:20)
[2021-08-24] MEDS: ipratropium-albuterol 3 mL Neb INHALATION ×2 (02:17→09:08)
[2021-08-24] MEDS: remdesivir 100 MG in sodium chloride 0.9% (100 ml) 100 ML IV (05:40)
[2021-08-24 05:55] LABS: Basophils % 0.3 %; Hematocrit 38.9 % (37.0-47.0); Hemoglobin 12.4 g/dL (11.5-15.3); Lymphocytes # 0.8 10^3/uL (0.8-4.8); Lymphocytes % 12.7 %; Mean Corpuscular HGB Conc 31.9 g/dL (30.0-36.0); Mean Corpuscular Hemoglobin 27.3 pg (28.0-34.0); Mean Corpuscular Volume 85.5 fl (81-99); Mean Platelet Volume 10.6 fL (7.4-10.4); Monocytes # 0.3 10^3/uL (0.2-0.9); Monocytes % 4.2 %; Neutrophils # 4.87 10^3/uL (1.8-7.7); Neutrophils % 78.1 %; Nucleated Red Blood Cells % 0 %; Platelet Count 266 10^3/cmm (130-400); Red Blood Count 4.55 10^6/uL (4.1-5.3); Red Cell Distribution Width 12.8 % (12.1-15.1); White Blood Count 6.2 10^3/uL (4.0-10.0)
[2021-08-24 06:03] LABS: D Dimer 0.41 ug/mIFEU (0-0.59)
[2021-08-24 06:08] LABS: Albumin Level 3.3 g/dL (3.5-5.2); Alkaline Phosphatase 51 IU/L (35-105); Anion Gap 18.5 (5-19); Aspartate Amino Transferase 27 U/L (0-32); Blood Urea Nitrogen 8 mg/dL (6-20); Calcium 7.9 mg/dL (8.5-10.5); Carbon Dioxide 21 mmol/L (22-29); Chloride 100 mmol/L (98-107); Globulin 3.5 g/dL (1.3-4.6); Glomerular Filtration Rate 176.8 mL/min (90-130); Glucose 365 mg/dL (65-115); Osmolality Calculated 293 mOsm/kg (285-295); Potassium 4.5 mmol/L (3.5-5.1); Sodium 135 mmol/L (136-145); Total Bilirubin 0.3 mg/dL (0.15-1.2); Total Protein 6.8 g/dL (6.6-8.7)
[2021-08-24 06:18] LABS: Alanine Aminotransferase 38 U/L (0-33)
[2021-08-24 07:31] LABS: Glucose Point of Care 365 mg/dL (70-110)
[2021-08-24] MEDS: ferrous gluconate 324 mg Tablet PO (08:21)
[2021-08-24] MEDS: insulin lispro 100 unit/1 mL SUBCUT ×2 (08:21→13:10)
[2021-08-24] MEDS: benzonatate 100 mg Capsule PO (08:21)
[2021-08-24] MEDS: pantoprazole DR 40 mg Tablet PO (08:21)
[2021-08-24] MEDS: budesonide 0.5 mg/2 mL Neb INHALATION (09:08)
[2021-08-24 11:05] LABS: Glucose Point of Care 360 mg/dL (70-110)
--- NOTE | 2021-08-24 11:56 | PM.DCS ---
Discharge Providers Date of Admission: 08/20/21 00:58 Date of Discharge: August 24, 2021 Attending Provider at Admission: Shanna Zuleta MD Attending Provider at Discharge: Rashawn Alonzo Diagnoses at Discharge Discharge Diagnosis (1) Pneumonia due to 2019 novel coronavirus: Status: Acute (2) Acute respiratory failure with hypoxemia: Status: Acute Reason for Visit Reason for Visit: Covid + SOB Hospital Course Hospital Course Pleasant 41-year-old lady with past history of smoking, with diabetes, morbid obesity, was admitted and treated for hypoxic respiratory failure secondary to severe COVID-19, while in hospital received treatment with remdesivir, Decadron, breathing treatments, supportive care, VT prophylaxis, empirically treated also with ceftriaxone and azithromycin. Hypoxia and oxygen requirement gradually improved, and she has been down from requiring as high as 6 L of oxygen to down to 4 currently and continuing to improve. She has been getting up in the room with less effort by herself. Reports she is feeling much better, with improving cough, good oral intake, and requesting to return home. States her symptoms started 2 weeks ago, so is asked to maintain isolation for additional 6 days. She is going to be set up with oxygen at home continue weaning gradually as she is improving. During hospitalization she was also found to have iron deficiency and started on iron supplementation. Hemoccult was requested, but not collected, please continue assessment of iron deficiency on outpatient side, refer for endoscopic relation to exclude malignancy and other causes as appropriate in case of finding of GI blood loss. Continue management of chronic conditions including diabetes, her A1c was 9.8, assist her with options for weight loss. She is asked to maintain diabetic diet. Physical Exam Const: COMMON NORMALS: no acute distress, patient oriented x3 and alert GENERAL APPEARANCE: cooperative and comfortable NUTRITIONAL APPEARANCE: obese ORIENTATION/CONSCIOUSNESS: Yes awake HENMT: COMMON NORMALS: oropharynx normal Neck/C-Spine: COMMON NORMALS: no JVD Resp: COMMON NORMALS: normal respiratory effort and clear to auscultation bilaterally EFFORT & INSPECTION: Yes able to speak in complete sentences AUSCULTATION: clear to auscultation bilaterally Cardio: COMMON NORMALS: no JVD, regular rhythm, S1 normal heart sound present, S2 normal heart sound present and No murmurs present (Cardio) RHYTHM: regular rhythm HEART SOUNDS: S1 normal heart sound present and S2 normal heart sound present GI: COMMON NORMALS: Normal to inspection, nondistended, normoactive bowel sounds present, Soft to palpation and non-tender PALPATION: Yes Soft to palpation Extremity: COMMON NORMALS: no joint enlargement and no pedal edema Neuro: COMMON NORMALS: patient oriented x3 and moves all extremities SENSORIUM/ORIENTATION: Yes alert Skin: COMMON NORMALS: no rashes or lesions noted GENERAL SKIN EXAM: no rashes or lesions noted Discharge Data Data Completed and Pending: Completed Studies During Hospitalization Category Date Time Status CT angio chest PE protcl [id number] Urge nt Cat Scan 08/19/21 23:45 Completed XR chest 1V butch ble [id number] Stat Exams 08/19/21 21:36 Completed Pending at discharge Category Date Time Status Blood Culture Sta t Lab 08/19/21 21:50 Results Immunochemical Fe chetan OCB Routine Lab 08/21/21 18:22 Uncollected Labs from last 24 hours 08/24/21 08/24/21 08/24/21 10:51 06:28 05:32 WBC RBC Hgb Hct MCV MCH MCHC RDW Plt Count MPV Neut % (Auto) Lymph % (Auto) [place] % (Auto) Eos % (Auto) Baso % (Auto) Neut # (Auto) Lymph # (Auto) [place] # (Auto) Eos # (Auto) Baso # (Auto) Nucleated RBC % (a uto) Nucleated RBCs # D-Dimer Sodium 135 L Potassium 4.5 Chloride 100 Carbon Dioxide 21 L Anion Gap 18.5 BUN 8 Creatinine 0.4 L GFR Calculation 176.8 H Glucose 365 H POC Glucose 360 H 365 H Calculated Osmolal ity 293 Calcium 7.9 L Total Bilirubin 0.3 AST 27 ALT 38 H Alkaline Phosphata se 51 Total Protein 6.8 Albumin 3.3 L Globulin 3.5 08/24/21 08/24/21 08/23/21 05:32 05:32 20:18 WBC 6.2 RBC 4.55 Hgb 12.4 Hct 38.9 MCV 85.5 MCH 27.3 L MCHC 31.9 RDW 12.8 Plt Count 266 MPV 10.6 H Neut % (Auto) 78.1 Lymph % (Auto) 12.7 [place] % (Auto) 4.2 Eos % (Auto) 0.0 Baso % (Auto) 0.3 Neut # (Auto) 4.87 Lymph # (Auto) 0.8 [place] # (Auto) 0.3 Eos # (Auto) 0.0 Baso # (Auto) 0.0 Nucleated RBC % (a uto) 0 Nucleated RBCs # 0.0 D-Dimer 0.41 Sodium Potassium Chloride Carbon Dioxide Anion Gap BUN Creatinine GFR Calculation Glucose POC Glucose 307 H Calculated Osmolal ity Calcium Total Bilirubin AST ALT Alkaline Phosphata se Total Protein Albumin Globulin 08/23/21 16:43 WBC RBC Hgb Hct MCV MCH MCHC RDW Plt Count MPV Neut % (Auto) Lymph % (Auto) [place] % (Auto) Eos % (Auto) Baso % (Auto) Neut # (Auto) Lymph # (Auto) [place] # (Auto) Eos # (Auto) Baso # (Auto) Nucleated RBC % (a uto) Nucleated RBCs # D-Dimer Sodium Potassium Chloride Carbon Dioxide Anion Gap BUN Creatinine GFR Calculation Glucose POC Glucose 353 H Calculated Osmolal ity Calcium Total Bilirubin AST ALT Alkaline Phosphata se Total Protein Albumin Globulin Vitals: Last Vital Signs Temp 98.1 F 08/24/21 10:51 Pulse 82 08/24/21 10:51 Resp 18 08/24/21 10:51 BP 129/72 08/24/21 10:51 Pulse Ox 94 08/24/21 10:51 Discharge Plan Discharge Patient Disposition: Home Condition: Stable Prescriptions: New benzonatate 100 mg Capsule 100 mg PO TID PRN (Reason: Cough) Qty: 90 RF: 0 ferrous gluconate 324 mg (37.5 mg iron) Tablet 324 mg PO EVERY OTHER DAY Qty: 90 RF: 0 Continued pioglitazone 45 mg tablet 45 mg PO DAILY RF: 0 albuterol sulfate 90 mcg/actuation HFA aerosol inhaler 2 puff INHALATION Q6H PRN (Reason: Shortness Of Breath) RF: 0 Farxiga 10 mg tablet 10 mg PO DAILY RF: 0 Bydureon 2 mg/0.65 mL Pen Injector 2 mg SUBCUT Q7D RF: 0 Discharge Orders: Discharge Order (Routine); Ordered 08/24/21 Ordered By: Rashawn Alonzo Other Ambulatory Orders: DME: Oxygen (Order) Location: None Selected Ordered By: Rashawn Alonzo Referrals: Robert Roach FNP [Referring] - 4-7 days (PLEASE CALL FOR HOSPITAL FOLLOW UP FOR WEEK. ) Discharge Diet: Diabetic Discharge Activity: Increase activity as tolerated and Oxygen as instructed Patient Instructions: Iron Deficiency Anemia (GEN), Hypoxia (GEN), Droplet Precautions (GEN), COVID-19 (Coronavirus Disease 2019) (GEN), Obesity and Weight Control Activity Restrictions/Additional Instructions: Continue oxygen at home as instructed. Target saturation 92%. You may need to temporarily increase oxygen flow if with exertion your oxygen saturation decreases below 88%. With rest this should improve and you should be able to decrease oxygen flow back to the previous. As your oxygen is improving, saturation increasing, you may be able to slowly continue to trend down how much oxygen you are using until you are weaned off at rest, possibly needing some with exertion, and subsequently weaned off entirely. Continue incentive spirometer, at home. Continue isolation for additional 6 days to prevent spreading infection to others. Seek vaccination to help prevent recurrence of severe illness. Please follow-up with your primary doctor to discuss iron deficiency. Please seek additional assessment to exclude gastrointestinal blood loss which may require endoscopic evaluation to exclude malignancy or other causes. You are started on iron supplementation. Continue follow-up with your primary doctor with regards to chronic conditions including diabetes, discuss weight loss options. Discharge Attestations Time Spent in Discharge Care*: greater than 30 min Quality Metrics Clinical Quality Measures During this hospital stay, did patient experience: None Coding Level of Care Code Acute [facility] note Diagnoses Pneumonia due to 2019 novel coronavirus U07.1; J12.82 Acute respiratory failure with hypoxemia J96.01
== END 2021-08-24 14:41 | disposition home or self-care (01) | DRG 177 ==
LOC: ER 08-20 01:08 → MEDSURG 08-20 01:40
PROVIDERS: Student in an Organized Health Care Education/Training Program; Admitting Provider Student in an Organized Health Care Education/Training Program; Emergency Provider Emergency Medicine; Visit Provider Internal Medicine
DX: U07.1 COVID-19 (principal); J12.82 Pneumonia due to coronavirus disease 2019; J96.01 Acute respiratory failure with hypoxia; Z68.41 Body mass index [BMI] 40.0-44.9, adult; Z87.891 Personal history of nicotine dependence; E11.9 Type 2 diabetes mellitus without complications; E66.01 Morbid (severe) obesity due to excess calories; E61.1 Iron deficiency; Z79.84 Long term (current) use of oral hypoglycemic drugs; Z79.899 Other long term (current) drug therapy
CPT/HCPCS: 36415; 36416; 71045; 71275; 80053; 80061; 81001; 81025; 82962; 83036; 83540; 83550; 83605; 83615; 83880; 84145; 84443; 84484; 85025; 85378; 86140; 87040; 87086; 87426; 87641; 93005; 94640; 96365; 96367; 96372; 96375; 96376; 99285; J0456; J0696; J1100; J1650; J1815; J7030; J7050; J7626; Q9967

== ENCOUNTER → 2021-10-02 08:24 | Outpatient (BNVA) | payer MEDICAID, SELFPAY | PROVIDERS: Referring Provider Physician Assistant; Visit Provider Podiatrist Foot & Ankle Surgery | DX: M79.672 Pain in left foot (principal) | CPT/HCPCS: 73630 ==

== ENCOUNTER → 2022-01-24 08:09 | Outpatient (BNVA) | payer MEDICAID, SELFPAY | PROVIDERS: Visit Provider Podiatrist Foot & Ankle Surgery | DX: M72.2 Plantar fascial fibromatosis (principal); M79.672 Pain in left foot | CPT/HCPCS: 20550 ==

== ENCOUNTER → 2022-04-16 07:50 | Outpatient (BNVA) | payer MEDICAID, SELFPAY | PROVIDERS: Visit Provider Podiatrist Foot & Ankle Surgery | DX: M72.2 Plantar fascial fibromatosis (principal) | CPT/HCPCS: 99213 ==

== ENCOUNTER 2023-01-11 06:16 | Day surgery (SDC) | payer MEDICAID, SELFPAY ==
[2023-01-10 10:12] VITALS: BMI 46.2
--- NOTE | 2023-01-11 06:14 | PM.OPSURHP ---
Providers/Chief Complaint Chief Complaint: M62.42, M72.2 History of Present Illness Rimma Vera is a 42 year old female presenting with complaints of recalcitrant heel pain to the left foot. She was first evaluated by me in podiatry clinic on October 02, 2021. Preceding that appointment her heel pain had been present for several years. Over the course of her treatment she has underwent conservative care which has been exhaustive. Greater than 12 months of conservative management consisting of recommendations of supportive shoes, orthotics, aggressive stretching regimen, activity modifications, oral anti-inflammatories including steroidal, local cortisone shot series, at home physical therapy, night splint without relief. Continues to have sharp pain at her right heel with post static dyskinesia. She is wishing to discuss surgical options. Review of Systems General: Reports: 10 or more systems reviewed and unremarkable except in HPI and below Const: Denies: fever(s) or chills Eyes: Denies: change in vision Card: Denies: chest pain or palpitations Resp: Denies: dyspnea or productive cough GI: Denies: abdominal pain, nausea or vomiting : Denies: flank pain Musc: Reports: extremity pain, joint pain, joint stiffness, limited range of motion and deformity Skin/Breast: Reports: skin tenderness; Denies: rash Neuro: Reports: difficulty walking; Denies: numbness in extremities, sensory changes or frequent falls Psych: Denies: suicidal ideation Drew/Lymph: Denies: easy bruising Medications/Allergies Home Medications Medication Instructions Recorded Confirmed Last Taken Type albuterol sulfate 90 mcg/actuation 2 puff inhalation Q6H PRN 08/20/21 01/10/23 01/10/23 History aerosol inhaler Shortness Of Breath dapagliflozin 10 mg tablet 10 mg PO DAILY 08/20/21 01/10/23 01/10/23 History (Farxiga) exenatide microspheres 2 mg/0.65 2 mg SUBCUT Q7D 08/20/21 01/10/23 Unknown History mL subcutaneous pen injector pioglitazone 45 mg tablet 45 mg PO DAILY 08/20/21 01/10/23 01/10/23 History benzonatate 100 mg capsule 100 mg PO TID PRN Cough #90 caps 08/24/21 01/10/23 01/10/23 Rx ferrous gluconate 324 mg (37.5 mg 324 mg PO EVERY OTHER DAY #90 tabs 08/24/21 01/10/23 Unknown Rx iron) tablet nitroglycerin 0.6 mg/hr 1 patch transdermal DAILY 30 days 05/28/22 01/10/23 Unknown Rx transdermal 24 hour patch #30 ea furosemide 20 mg tablet 20 mg PO DAILY 01/10/23 01/10/23 01/10/23 History tamsulosin 0.4 mg capsule 0.4 mg PO DAILY 01/10/23 01/10/23 01/10/23 History Allergies Allergy/AdvReac Type Severity Reaction Status Date / Time No Known Allergies Allergy Verified 01/10/23 10:17 PFSH PFSH: Social History Smoking and tobacco status: former smoker Vital Signs Weight: Weight last 48 hrs Weight 261 lb Physical Exam Narrative: EXAM NARRATIVE: atient is alert and oriented ?3 and in no acute distress.? The following is a focused bilateral lower extremity exam. VASCULAR: Dorsalis pedis and posterior tibial arteries palpable +2.? Capillary refill time less than 3 seconds to the distal hallux bilaterally. Calf is supple and nontender proximally and distally.? No pedal edema appreciated.? Pedal hair growth present. NEUROLOGICAL: Epicritic and protopathic sensations grossly intact to the lower extremities.? +2 Achilles tendon reflex noted bilaterally.? Negative Tinel sign upon percussion of lower extremity nerves. DERMATOLOGICAL: Lower extremity skin is well-hydrated, normal texture and turgor.? There are no open sores or lesions noted to the lower extremities.? No erythema or ecchymosis present to the bilateral legs and feet. MUSCULOSKELETAL: Pain to palpation near origin of medial band of the plantar fascia at the medial calcaneal tubercle, left foot.? No palpable mass along the course of the plantar fascia appreciated.? No pain to palpation along the course of the bilateral Achilles tendon.? No pain to palpation along the course posterior tibial tendon or peroneal tendons.? No pain with [id number] compression of calcaneus, bilaterally.? Muscle strength is 5/5 in all 3 cardinal planes pain-free without guarding to the foot and ankle, bilaterally. Ankle joint dorsiflexion is 4 degrees beyond neutral with knee extended to the left lower extremity and 8 degrees beyond neutral with knee flexed. CARDIOVASCULAR: S1, S2, normal rate, normal rhythm. Dorsalis pedis and posterior tibial arteries palpable. LUNGS: Clear to auscltation, no use of acessory muscles, no crackles or wheezes. A&P Assessment and plan (1) Plantar fasciitis, left: (2) Gastrocnemius equinus of left lower extremity: (3) Left foot pain: Plan Rimma Vera is a 42 year old female presenting with complaints of recalcitrant heel pain to the left foot. She was first evaluated by me in podiatry clinic on October 02, 2021. Preceding that appointment her heel pain had been present for several years. Over the course of her treatment she has underwent conservative care which has been exhaustive. Greater than 12 months of conservative management consisting of recommendations of supportive shoes, orthotics, aggressive stretching regimen, activity modifications, oral anti-inflammatories including steroidal, local cortisone shot series, at home physical therapy, night splint without relief. Continues to have sharp pain at her right heel with post static dyskinesia. She is wishing to discuss surgical options. From a surgical standpoint I consulted with the patient on concerns of plantar fascia release that may result in collapse of the longitudinal arch and subsequent pain and altered gait, I advised that this should be a last resort. Recommended a stepwise approach with initial gastrocnemius release and cortisone injection to the plantar fascia under anesthesia. Would continue physical therapy, supportive shoes and orthotics. Should this fail to alleviate her pain then would proceed with plantar fascia release down the road. She is in agreements with this. I reviewed at length with the patient, the risks, potential complications, benefits, alternatives, expectations, and typical outcomes associated with the surgery. The risks and potential complications were explained in detail, including but not limited to infection, wound dehiscence or soft tissue complications, bleeding and hematoma, chronic edema, neuritis or nerve damage producing numbness or chronic pain, CRPS, failure to relieve pain or worsening pain, thick / painful / unsightly scar, limited motion / stiffness, malposition, delayed union, malunion, or nonunion, fracture, reaction to implants, anesthetic complications, venous thromboembolism, and deformity recurrence. I discussed the notion of no regrets with the patient as it pertains to complications and outcomes. The patient seemed to understand the nature of the proposed care and required convalescence. They asked appropriate questions, answered to their satisfaction. They are aware no guarantees can be made as to a satisfactory outcome and they understand there may be other possible unforeseen complications or outcomes not listed here that will be treated accordingly if they arise. There were no written or implied guarantees given to the patient. They gave informed consent to proceed. Gastrocnemius recession and plantar fascia injection all left lower extremity. Anesthesia choice, local MAC versus LMA. Supine, gurney, 30 minutes. Coding Level of Care Code Acute Code for [facility] Diagnoses Plantar fasciitis, left M72.2 Gastrocnemius equinus of left lower extremity M21.862 Left foot pain M79.672
--- NOTE | 2023-01-11 06:20 | W.PM.OPSUD ---
Surgery/Procedure H&P Update DATE OF PROCEDURE: January 11, 2023 DATE H&P PERFORMED: 01/11/23 CHANGES TO PREVIOUS DOCUMENTATION: None PLANNED PROCEDURE: Operation Date: 01/11/23 07:55 Proposed Procedures p Left gastrocnemius recession and cortisone injection left plantar fascia 96813, 10966, M62.462,M72.2(Left) - Francis Esqueda DPM s Cortisone Injection(Left) - Francis Esqueda DPM
--- NOTE | 2023-01-11 06:21 | P.OP_ITS ---
Operative Report Date of procedure: January 11, 2023 Pre-op diagnosis: Left gastrocnemius equinus. Left plantar fibromatosis. Post-op diagnosis: Same Procedure done: Left gastrocnemius recession. CPT code 01841 Cortisone injection, left plantar fascia. CPT code 73474 Implants: 3-0 Vicryl, 4-0 nylon Surgeon: Francis Esqueda D.P.M. Sales Service Assistant: Judith Estimated blood loss: 5 15 IV fluids: 0 Urine output: None Complications: None Brief History: Rimma Vera is a 42 year old female presenting with complaints of recalcitrant heel pain to the left foot.? She was first evaluated by me in podiatry clinic on October 02, 2021.? Preceding that appointment her heel pain had been present for several years.? Over the course of her treatment she has underwent conservative care which has been exhaustive.? Greater than 12 months of conservative management consisting of recommendations of supportive shoes, orthotics, aggressive stretching regimen, activity modifications, oral anti-inflammatories including steroidal, local cortisone shot series, at home physical therapy, night splint without relief.? Continues to have sharp pain at her right heel with post static dyskinesia.? She is wishing to discuss surgical options. From a surgical standpoint I consulted with the patient on concerns of plantar fascia release that may result in collapse of the longitudinal arch and subs equent pain and altered gait, I advised that this should be a last resort.? Recommended a stepwise approach with initial gastrocnemius release and cortisone injection to the plantar fascia under anesthesia.? Would continue physical therapy, supportive shoes and orthotics.? Should this fail to alleviate her pain then would proceed with plantar fascia release down the road.? She is in agreements with this. I reviewed at length with the patient, the risks, potential complications, benefits, alternatives, expectations, and typical outcomes associated with the surgery. The risks and potential complications were explained in detail, including but not limited to infection, wound dehiscence or soft tissue complications, bleeding and hematoma, chronic edema, neuritis or nerve damage producing numbness or chronic pain, CRPS, failure to relieve pain or worsening pain, thick / painful / unsightly scar, limited motion / stiffness, malposition, delayed union, malunion, or nonunion, fracture, reaction to implants, anesthetic complications, venous thromboembolism, and deformity recurrence.? I discussed the notion of no regrets with the patient as it pertains to complications and outcomes. The patient seemed to understand the nature of the proposed care and required convalescence. They asked appropriate questions, answered to their satisfaction. They are aware no guarantees can be made as to a satisfactory outcome and they understand there may be other possible unforeseen complications or outcomes not listed here that will be treated accordingly if they arise. There were no written or implied guarantees given to the patient. They gave informed consent to proceed. Procedure: Under mild sedation the patient was brought to the operating room and remained on the gurney in supine position. A timeout was performed. Anesthesia was then administered by the anesthesia service. Local anesthesia was injected by myself consisting of one-to-one mixture 1% lidocaine and 0.5 to Marcaine plain in a diffuse V-block proximal to the surgical site at the medial distal one third of the calf, left lower extremity. A cortisone injection was administered at the origin of the plantar fascia, medial approach at the left plantar fascia and injected utilizing a one-to-one mixture dexamethasone and Kenalog 40. Well- padded pneumatic tourniquet applied to the left high calf. The left lower extremity was scrubbed, prepped and draped utilizing normal aseptic technique. Left lower extremity was exanguinated with an Esmarch bandage. Tourniquet was then inflated to 250 mmHg. Attention was directed to the medial aspect of the left distal one third of the leg at the gastrocnemius flare where a linear longitudinal incision was made proximally 5 cm in length through skin with a #15 blade with dissection carried down through subcutaneous tissue to the layer of crural fascia utilizing sharp and blunt technique. Care was taken to retract and preserve neurovascular and tendinous structures. All bleeders were ligated and cauterized as necessary. Incision of the crural fascia was performed with a deep blade and the gastrocnemius aponeurosis was identified utilizing blunt dissection. The gastrocnemius aponeurosis was released utilizing Metzenbaum scissors from medial to lateral under direct visualization, loading the foot in a dorsiflexed position was able to see a obvious release and gapping of the aponeurosis. Increased dorsiflexion with knee extended intraoperatively was appreciated at approximately 12 degrees of dorsiflexion. The incision was irrigated with copious amounts of Staticin solution. Crural fascia was reapproximated utilizing 4-0 Vicryl. Subcutaneous tissue was reapproximated utilizing 4-0 Vicryl and skin was closed with 4-0 nylon. The incision was dressed with Adaptic, sterile 4 x 4's, Kerlix and 4 inch Coban. Tourniquet was deflated and a prompt hyperemic response was noted to the distal digits of the left foot. Patient tolerated the procedure and anesthesia well and was transferred to the PACU with vital signs stable and vascular status intact. Cam boot was applied to the left lower extremity. Patient was given at home care instructions, scheduled follow-up and my cell phone number to contact with any postoperative questions or concerns.
[2023-01-11 06:39] VITALS: BP 127/73; PULSE 81; RESP 18; TEMP 36.6; O2SAT 98
[2023-01-11 06:47] LABS: Glucose Point of Care 210 mg/dL (70-110)
[2023-01-11] MEDS: sodium chloride 0.9% 1,000 ML 30 ML IV (06:49)
[2023-01-11 07:17] LABS: Anion Gap 17.1 (5-19); Blood Urea Nitrogen 11 mg/dL (6-20); Carbon Dioxide 25 mmol/L (22-29); Chloride 97 mmol/L (98-107); Glucose 205 mg/dL (65-115); Osmolality Calculated 285 mOsm/kg (285-295); Potassium 4.1 mmol/L (3.5-5.1); Sodium 135 mmol/L (136-145)
[2023-01-11 07:29] LABS: OR HCG Qualitative Urine Negative (Negative)
[2023-01-11] MEDS: ceFAZolin 3,000 MG in sodium chloride 0.9% (100 ml) 100 ML 200 MG IV (08:17)
--- NOTE | 2023-01-11 08:36 | P.ANESASSM_ITS ---
Pre-Anesthetic Assessment Height/Weight: Height 1.6 m Weight 118.388 kg Temp Pulse Resp BP Pulse Ox O2 Del Method 97.9 F 81 18 127/73 98 Room Air 01/11/23 06:39 01/11/23 06:39 01/11/23 06:39 01/11/23 06:39 01/11/23 06:39 01/11/23 06:39 Preop Diagnosis: Plantar fasciitis, gastrocnemius equinus, all left lower extremity. Operation Date: 01/11/23 07:55 Proposed Procedures p Left gastrocnemius recession and cortisone injection left plantar fascia 87912, 06293, M62.462,M72.2(Left) - Francis Esqueda DPM s Cortisone Injection(Left) - Francis Esqueda DPM Familial anesthetic complications: none Was Beta Elise taken within 24 hours: N/A Was Clonidine taken within 24 hours: N/A Last intake: Intake Last Liquid Date 01/10/23 Last Liquid Time 22:00 Last Solid Date 01/10/23 Last Solid Time 17:30 Social No alcohol and No tobacco (h/o smoking) Exam alert, oriented x 3, clear to auscultation bilaterally and regular rate & rhythm Airway Submandibular: within normal limits Cervical ROM: within normal limits Mallampati: Class II Dentition: false Pulmonary Asthma Metabolic Morbid Obesity Anesthetic Plan ASA status: 3 Anesthesia: Choice Medications/Allergies Home Medications Medication Instructions Recorded Confirmed Last Taken Type albuterol sulfate 90 mcg/actuation 2 puff inhalation Q6H PRN 08/20/21 01/10/23 01/11/23 History aerosol inhaler Shortness Of Breath dapagliflozin 10 mg tablet 10 mg PO DAILY 08/20/21 01/10/23 01/10/23 History (Farxiga) exenatide microspheres 2 mg/0.65 2 mg SUBCUT Q7D 08/20/21 01/11/23 01/06/23 History mL subcutaneous pen injector pioglitazone 45 mg tablet 45 mg PO DAILY 08/20/21 01/10/23 01/10/23 History benzonatate 100 mg capsule 100 mg PO TID PRN Cough #90 caps 08/24/21 01/10/23 01/10/23 Rx ferrous gluconate 324 mg (37.5 mg 324 mg PO EVERY OTHER DAY #90 tabs 08/24/21 01/10/23 Unknown Rx iron) tablet nitroglycerin 0.6 mg/hr 1 patch transdermal DAILY 30 days 05/28/22 01/10/23 Un known Rx transdermal 24 hour patch #30 ea furosemide 20 mg tablet 20 mg PO DAILY 01/10/23 01/10/23 01/10/23 History tamsulosin 0.4 mg capsule 0.4 mg PO DAILY 01/10/23 01/10/23 01/10/23 History hydrocodone 10 mg-acetaminophen 1 tab PO Q6H PRN pain 7 days #28 01/11/23 Unknown Rx 325 mg tablet tabs Allergies Allergy/AdvReac Type Severity Reaction Status Date / Time No Known Allergies Allergy Verified 01/10/23 10:17 Current Medications Generic Name Dose Route Start Last Admin Trade Name Freq PRN Reason Stop Dose Admin Sodium Chloride 1,000 mls @ 30 mls/hr 01/11/23 06:30 01/11/23 06:49 Sodium Chloride 0.9% IV 01/12/23 06:29 30 mls/hr .Q24H JERRELL Administration PFSH Anesthesia Social History Smoking and tobacco status: former smoker Data Anesthesia 01/11/23 06:45 BMP 01/11/23 06:45 Sodium 135 L Potassium 4.1 Chloride 97 L Carbon Dioxide 25 BUN 11 Creatinine 0.5 Glucose 205 H Calcium 9.0 Cardiac Studies: No Data to Display
[2023-01-11] MEDS: lidocaine 2% INJ 20 mL INJECTION (08:47)
[2023-01-11] MEDS: dexamethasone 4 mg/mL INJ INJECTION (08:47)
[2023-01-11] MEDS: triamcinolone 40 mg/mL SDV INJECTION (08:48)
[2023-01-11 08:59] VITALS: BP 146/70; PULSE 88; RESP 12; TEMP 36.2; O2SAT 100
--- NOTE | 2023-01-11 08:59 | PC.NURSE ---
Pt arrived to PACU, awake, pt denies any pain or nausea at this time. Dressing to left foot C/D/I, left toes p/w/d, cap refill <3 seconds, able to wiggle toes. FOB elevated.
[2023-01-11 09:04] VITALS: BP 103/68; PULSE 79; RESP 17; O2SAT 96
[2023-01-11 09:09] VITALS: BP 104/65; PULSE 80; RESP 16; O2SAT 97
[2023-01-11 09:14] VITALS: BP 110/67; PULSE 80; RESP 17; TEMP 36.2; O2SAT 97
[2023-01-11 09:29] VITALS: BP 114/64; PULSE 74; RESP 18; O2SAT 95
[2023-01-11] MEDS: HYDROcodone-acetaminophen 5-325 mg Tablet 1 TAB PO (09:40)
--- NOTE | 2023-01-11 14:34 | ANE.PACU2 ---
Inpatient post-anesthesia follow up: Airway intact: Yes Vital signs: Temperature 97.1 F Pulse Rate 74 Respiratory Rate 18 Blood Pressure 114/64 Pulse Oximetry 95 Oxygen Delivery Me thod Room Air Oxygen Flow Rate Fraction of Inspir ed Oxygen Hydration adequate: Yes Nausea and vomiting: No Pain level: 2 Mental status: Baseline
== END 2023-01-11 10:00 | disposition home or self-care (01) ==
PROVIDERS: Anesthesiology; Visit Provider Podiatrist Foot & Ankle Surgery
PROC: (CPT 27687; principal; 2023-01-11 07:45)
PROC: (CPT 96372; 2023-01-11 07:45)
DX: M72.2 Plantar fascial fibromatosis (principal); M21.862 Other specified acquired deformities of left lower leg; J45.909 Unspecified asthma, uncomplicated; E66.01 Morbid (severe) obesity due to excess calories; Z68.42 Body mass index [BMI] 45.0-49.9, adult; Z87.891 Personal history of nicotine dependence
CPT/HCPCS: 20550; 27687; 36415; 36416; 80048; 82962; 84703; J1100; J2250; J2704; J3010; J3301; J3490; J7030

== ENCOUNTER 2023-03-24 17:33 | Emergency (ER) | payer MEDICAID, SELFPAY ==
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
[2023-03-24 18:41] VITALS: BP 129/68; PULSE 81; RESP 16; TEMP 36.9; O2SAT 98; BMI 46.0
[2023-03-24 19:15] VITALS: BP 119/77; PULSE 80; TEMP 37.1; O2SAT 98
--- NOTE | 2023-03-24 19:51 | ED_ITS ---
HPI - Extremity Problem General: Chief complaint: Extremity Injury, Upper Stated complaint: LT wrist inj Time Seen by Provider: 03/24/23 19:20 Source: patient Mode of arrival: ambulatory Limitations: no limitations History of Present Illness: 42 female here after a fall. States she fell onto her right arm and been in her right wrist back states been having right wrist pain since the event states pain sharp in nature much worse with movement or palpation denies any other injuries denies hitting her head. Denies any neck pain Associated symptoms: Deny chest pain, fever(s) or rash Review of Systems Const: Denies: fever(s) or chills ENMT: Denies: throat pain or dental pain Card: Denies: chest pain Resp: Denies: dyspnea GI: Denies: abdominal pain, nausea, vomiting or diarrhea Musc: Reports: extremity pain; Denies: neck pain or back pain Skin/Breast: Denies: rash Neuro: Denies: headache(s) PFSH ED PFSH: Social History Smoking and tobacco status: former smoker Physical Exam Const: COMMON NORMALS: no acute distress and patient oriented x3 HENMT: COMMON NORMALS: normocephalic and atraumatic HEAD & SCALP: normocephalic and atraumatic Eye: COMMON NORMALS: conjunctivae normal CONJUNCTIVA: Yes conjunctivae normal Neck/C-Spine: COMMON NORMALS: supple Chest: COMMONS NORMALS: normal inspection of the chest Resp: COMMON NORMALS: normal respiratory effort Extremity: NARRATIVE EXTREMITY EXAM: Tenderness over right wrist distal pulses sensation intact Neuro: COMMON NORMALS: patient oriented x3 Psych: COMMON NORMALS: mental status grossly normal Skin: COMMON NORMALS: no rashes or lesions noted GENERAL SKIN EXAM: no rashes or lesions noted Course Vital Signs: Vital signs: Vital Signs Temperature 98.7 F 03/24/23 19:15 Pulse Rate 80 03/24/23 19:15 Respiratory Rate 16 03/24/23 18:41 Blood Pressure 119/77 03/24/23 19:15 Pulse Oximetry 98 03/24/23 19:15 Oxygen Delivery Me thod Room Air 03/24/23 19:15 MDM - Extremity (Nontraumatic) Medical Decision Making 42-year-old female presented here with a left wrist fracture patient placed in a splint we will get follow-up with orthopedics does not require reduction. Lab Data Radiology Impressions Wrist X-Ray 03/24/23 18:03 IMPRESSION: Hairline horizontal slightly impacted fracture through the distal radial metaphysis with torus deformity laterally. Discharge Plan Discharge Patient Disposition: Home Clinical Impression: Fracture of wrist Qualifiers: Encounter type: initial encounter Fracture type: closed Laterality: left Qualified Code(s): S62.102A - Fracture of unspecified carpal bone, left wrist, initial encounter for closed fracture Condition: Stable Prescriptions: New hydrocodone-acetaminophen 5-325 mg tablet 1 tab PO Q6H PRN (Reason: pain) Qty: 14 0RF No Action nitroglycerin 0.6 mg/hr patch 24 hour 1 patch transdermal DAILY 30 Days Qty: 30 0RF Rx Instructions: allow nitrate-free interval of approx. 10-12 hrs per 24-hour period pioglitazone 45 mg tablet 45 mg PO DAILY albuterol sulfate 90 mcg/actuation HFA aerosol inhaler 2 puff INHALATION Q6H PRN (Reason: Shortness Of Breath) Farxiga 10 mg tablet 10 mg PO DAILY exenatide microspheres 2 mg/0.65 mL Pen Injector 2 mg SUBCUT Q7D Rx Instructions: On Sundays benzonatate 100 mg Capsule 100 mg PO TID PRN (Reason: Cough) Qty: 90 0RF ferrous gluconate 324 mg (37.5 mg iron) Tablet 324 mg PO EVERY OTHER DAY Qty: 90 0RF tamsulosin 0.4 mg capsule 0.4 mg PO DAILY furosemide 20 mg tablet 20 mg PO DAILY Discharge Orders: Discharge ED (Routine); Ordered 03/24/23 Ordered By: Oliver Obando Referrals: Carlito Martines DO [Physician] - 1-3 days Discharge Diet: Advance as tolerated Discharge Activity: Resume usual activity Patient Instructions: Wrist Fracture in Adults (ED), Opioid Safety Coding Level of Care Code ED Manufacturers Service Representative for Leesa Mcadams
[2023-03-24] MEDS: HYDROcodone-acetaminophen 5-325 mg Tablet 1 TAB PO (19:54)
[2023-03-24 19:55] VITALS: PULSE 82
[2023-03-24 19:58] VITALS: BP 129/78; PULSE 82; RESP 17; O2SAT 97
[2023-03-24 20:29] VITALS: PULSE 80; RESP 18; O2SAT 97
--- NOTE | 2023-03-25 08:31 | DCPLANNER ---
Addendum entered by Liza De La Garza 04/11/23 12:19: Patient did attend appointment Addendum entered by Liza De La Garza 03/25/23 15:07: Patient has a follow up appointment scheduled for March at 7:[address] Martines at ortho. Original Note: software sales manager had message to schedule a follow up appointment for patient with ortho. software sales manager sent patients information to the front office staff at ortho. Patients information will be printed and reviewed. Clinic will call patient with appointment information.
--- NOTE | 2023-03-25 15:03 | DCPLANNER ---
business performance manager called patient due to no primary care physician. Patient stated that she goes to the [facility] the [facility] in [facility] and sees a provider at that clinic.
== END 2023-03-24 20:31 | disposition home or self-care (01) ==
PROVIDERS: Emergency Provider Emergency Medicine
DX: S52.592A Other fractures of lower end of left radius, initial encounter for closed fracture (principal); Z87.891 Personal history of nicotine dependence; W19.XXXA Unspecified fall, initial encounter
CPT/HCPCS: 73110; 99283

== ENCOUNTER → 2023-03-28 07:29 | Outpatient (BNVA) | payer MEDICAID, SELFPAY | PROVIDERS: Referring Provider Emergency Medicine; Visit Provider Student in an Organized Health Care Education/Training Program | DX: S52.502A Unspecified fracture of the lower end of left radius, initial encounter for closed fracture; W19.XXXA Unspecified fall, initial encounter | CPT/HCPCS: 73110 ==

== ENCOUNTER 2023-03-28 10:09 | Outpatient (CLI) | payer MEDICAID, SELFPAY | END 2023-03-28 10:10 | disposition home or self-care (01) | LOC: SPT 10:10 | PROVIDERS: Visit Provider Student in an Organized Health Care Education/Training Program | DX: Z46.89 Encounter for fitting and adjustment of other specified devices (principal); S52.592D Other fractures of lower end of left radius, subsequent encounter for closed fracture with routine healing; X58.XXXD Exposure to other specified factors, subsequent encounter | CPT/HCPCS: 97760; L3982 ==

== ENCOUNTER → 2023-04-04 08:26 | Outpatient (BNVA) | payer MEDICAID, SELFPAY | PROVIDERS: Visit Provider Nurse Practitioner Family | DX: S52.502A Unspecified fracture of the lower end of left radius, initial encounter for closed fracture (principal); W19.XXXA Unspecified fall, initial encounter | CPT/HCPCS: 73110 ==

== ENCOUNTER → 2023-04-15 11:10 | Outpatient (BNVA) | payer MEDICAID, SELFPAY | PROVIDERS: Visit Provider Nurse Practitioner Family | DX: S52.502A Unspecified fracture of the lower end of left radius, initial encounter for closed fracture (principal); W19.XXXA Unspecified fall, initial encounter | CPT/HCPCS: 73110 ==

== ENCOUNTER → 2023-04-30 12:49 | Outpatient (BNVA) | payer MEDICAID, SELFPAY | PROVIDERS: Visit Provider Nurse Practitioner Family | DX: S52.502A Unspecified fracture of the lower end of left radius, initial encounter for closed fracture (principal); W19.XXXA Unspecified fall, initial encounter | CPT/HCPCS: 73110 ==

== ENCOUNTER → 2023-08-08 11:02 | Outpatient (BNVA) | payer MEDICAID, SELFPAY | PROVIDERS: Visit Provider Physician Assistant | DX: S52.502A Unspecified fracture of the lower end of left radius, initial encounter for closed fracture (principal); X58.XXXA Exposure to other specified factors, initial encounter | CPT/HCPCS: 73110 ==

== ENCOUNTER 2023-08-08 18:49 | Emergency (ER) | payer MEDICAID, SELFPAY ==
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
[2023-08-08 19:05] VITALS: BP 148/84; PULSE 97; RESP 20; TEMP 37; O2SAT 99; BMI 47.5
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
[2023-08-08 19:40] VITALS: BP 133/66; PULSE 87; RESP 18; O2SAT 98
[2023-08-08] MEDS: HYDROcodone-acetaminophen 5-325 mg Tablet 1 TAB PO (20:30)
[2023-08-08 20:54] VITALS: BP 125/64; PULSE 72; RESP 16; O2SAT 97
[2023-08-08 21:12] VITALS: BP 133/62; PULSE 77; RESP 18; O2SAT 100
== END 2023-08-08 21:13 | disposition home or self-care (01) ==
PROVIDERS: Emergency Provider Emergency Medicine
DX: T14.8XXA Other injury of unspecified body region, initial encounter (principal); Z87.891 Personal history of nicotine dependence; V89.2XXA Person injured in unspecified motor-vehicle accident, traffic, initial encounter
CPT/HCPCS: 70450; 72125; 73130; 73552; 99284

== ENCOUNTER → 2023-12-04 12:08 | Outpatient (BNVA) | payer MEDICAID, SELFPAY | PROVIDERS: Visit Provider Internal Medicine | DX: E11.9 Type 2 diabetes mellitus without complications (principal); E78.2 Mixed hyperlipidemia | CPT/HCPCS: 36415; 80053; 80061; 82044; 83036 ==

== ENCOUNTER 2024-08-03 19:24 | Emergency (ER) | payer MEDICAID, SELFPAY ==
[2024-08-03] VITALS (7 sets, daily range): BP systolic 122–148; BP diastolic 70–79; PULSE 72–93; RESP 14–20; TEMP 36.6; O2SAT 98–100
--- NOTE | 2024-08-03 19:33 | ECG_ITS ---
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 Measurements Intervals [place] Rate: 80 P: 42 HI: 179 QRS: 52 QRSD: 91 T: 38 QT: 372 QTc: 431 Interpretive Statements SINUS RHYTHM LOW QRS VOLTAGE IN PRECORDIAL LEADS [QRS DEFLECTION < 1.0 mV IN CHEST LEADS] Compared to ECG 08/19/2021 21:52:06 No significant changes Electronically Signed On 08-04-2024 21:34:35 SAW SUPERINTENDENT by Miguel Talavera M.D. [id number]
--- NOTE | 2024-08-03 20:52 | ED_ITS ---
HPI - Chest Pain 2 General: Chief Complaint: Chest Pain Stated Complaint: Neck Pain Time Seen by Provider: 08/03/24 20:50 History of Present Illness: 44-year-old female with a history of obe sity and diabetes who presents emergency room with chest pain and neck pain. Says this started a couple of hours ago. Initially she had some neck pain. Then some numbness and pain down her left arm and then some left-sided chest pain. She still having some mild chest and left neck pain. No cardiac history. No cough. No shortness of breath. No altered mental status. No focal motor deficits. No abdominal pain. No nausea or vomiting. Related Data Home Medications Medication Instructions Recorded Confirmed albuterol sulfate 90 mcg/actuation 2 puff inhalation Q6H PRN 08/20/21 05/11/24 aerosol inhaler Shortness Of Breath Previous Rx's Medication Instructions Recorded ferrous gluconate 324 mg (37.5 mg 324 mg PO EVERY OTHER DAY #90 tabs 08/24/21 iron) tablet fast form #1 ea 03/28/23 fluorouracil 5 % topical cream 1 applic topical DAILY #40 grams 07/23/23 (Efudex) permethrin 5 % topical cream 1 applic topical Q14D 2 doses #60 08/02/23 (Elimite) grams sulfamethoxazole 800 1 tab PO BID 10 days #20 tabs 08/02/23 mg-trimethoprim 160 mg tablet Cock Up Wrist Brace #1 ea 08/08/23 naproxen 500 mg tablet (Naprosyn) 500 mg PO BID PRN pain #20 tabs 08/08/23 PTT Supinator #1 ea 11/18/23 atorvastatin 20 mg tablet 20 mg PO DAILY #90 tabs 12/09/23 pioglitazone 45 mg tablet (Actos) 45 mg PO DAILY #90 tabs 12/09/23 methylprednisolone 4 mg tablets in See Rx Instructions PO PER PKG DIR 01/22/24 a dose pack (Medrol (Jason)) #21 ea meloxicam 15 mg tablet 15 mg PO DAILY #30 tabs 03/10/24 blood-glucose meter,continuous #1 ea 03/11/24 (Dexcom G7 Variety Lathe Operator) blood-glucose sensor (Dexcom G7 #3 ea 03/25/24 Sensor device) blood-glucose meter,continuous #1 ea 04/09/24 (Dexcom G7 Variety Lathe Operator) blood-glucose sensor (Dexcom G7 #3 ea 04/09/24 Sensor device) metformin 500 mg tablet,extended See Rx Instructions .Route 04/16/24 release 24 hr .COMPLEX #360 tabs AFO to left #1 ea 05/11/24 Diabetic Shoes with 3 pairs of #1 ea 06/22/24 Custom Orthotics dulaglutide 4.5 mg/0.5 mL See Rx Instructions .Route 07/08/24 subcutaneous pen injector .COMPLEX #2 mL (Trulicity) insulin glargine 100 unit/mL (3 See Rx Instructions .Route 07/13/24 mL) subcutaneous pen (Lantus .COMPLEX #45 mL Solostar U-100 Insulin) Allergies Allergy/AdvReac Type Severity Reaction Status Date / Time No Known Allergies Allergy Verified 08/03/24 19:39 Review of Systems 2 Narrative: Constitutional symptoms: Negative except as documented in HPI. Skin symptoms: Negative except as documented in HPI. Eye symptoms: Negative except as documented in HPI. ENMT symptoms: Negative except as documented in HPI. Respiratory symptoms: Negative except as documented in HPI. Cardiovascular symptoms: Negative except as documented in HPI. Gastrointestinal symptoms: Negative except as documented in HPI. Genitourinary symptoms: Negative except as documented in HPI. Musculoskeletal symptoms: Negative except as documented in HPI. Neurologic symptoms: Negative except as documented in HPI. Psychiatric symptoms: Negative except as documented in HPI. Endocrine symptoms: Negative except as documented in HPI. PFSH ED 2 PFSH: Social History Smoking and tobacco/nicotine status: former use of tobacco/nicotine Alcohol intake: current Alcohol intake frequency: few times a month Physical Exam 2 Narrative: EXAM NARRATIVE: General: Alert, no acute distress. Skin: Warm, dry. Head: Normocephalic, atraumatic. Neck: Supple, trachea midline. Eye: Extraocular movements are intact. Ears, nose, mouth and throat: mucosa moist. Cardiovascular: Regular, Normal peripheral perfusion. Respiratory: Lungs are clear to auscultation, respirations are non-labored, breath sounds are equal, Symmetrical chest wall expansion. Gastrointestinal: Soft, Nontender, Non distended Musculoskeletal: Normal ROM, no deformity. Neurological: Alert and oriented, No focal neurological deficit observed. Psychiatric: Cooperative, appropriate mood & affect. Course 2 Vital Signs: Vital signs: Vital Signs Temperature 98 F 08/03/24 19:26 Pulse Rate 72 08/03/24 22:30 Respiratory Rate 16 08/03/24 22:30 Blood Pressure 128/79 08/03/24 22:30 Pulse Oximetry 98 08/03/24 22:30 Oxygen Delivery Me thod Room Air 08/03/24 22:30 MDM - Chest Pain Medical Decision Making Differential diagnosis for patient with chest pain includes but is not limited to and based on the above HPI, review of systems and physical exam: Pneumonia. unstable angina. angina. Acute coronary syndrome / [place]. Pulmonary embolism. Costochondritis / musculoskeletal. Pleurisy. Pericarditis. Esophageal spasm. Pancreatis. Cholecystitis. Orders placed to evaluate differential diagnosis based on the above differential, HPI and physical exam EKG: Time 1932. Rate 80. Normal sinus rhythm, No ST-T changes, no ectopy, normal AK & QRS intervals, This was reviewed and interpreted by myself the ER physician at 1938. Chest x-ray: No acute process. No infiltrate. No pneumothorax. This was reviewed and interpreted by myself the emergency room physician. I also reviewed the radiology report. CT of the cervical spine: No fracture. Good alignment. No step-offs. This was reviewed and interpreted by myself the emergency room physician. I also reviewed the radiologist report. L lab work is unremarkable. No leukocytosis. No renal failure. Serial troponins were negative ab Review: Laboratory results were reviewed and interpreted by myself the emergency room physician. I reviewed the patient's medical record. Reexamination: Patient remained stable. No increased work of breathing. No altered mental status. No focal motor deficits. Assessment and plan: Neck pain Noncardiac chest pain - Discharged home - Discussed findings and plan with patient. Answered any questions. - All laboratory values were reviewed and interpreted personally by myself, the ER physician - All imaging was reviewed and interpreted personally by myself, the ER physician. - Evaluation and treatment of this problem were appropriate in the emergency setting Lab Data 08/03/24 21:35 08/03/24 21:35 Radiology Impressions Cervical Spine CT 08/03/24 21:27 IMPRESSION: No acute findings. Chest X-Ray 08/03/24 21:27 IMPRESSION: No acute findings. Laboratory Results WBC 7.68 10^3/uL (3.29-11.43) 08/03/24 21:35 RBC 4.63 10^6/uL (3.85-5.65) 08/03/24 21:35 Hgb 12.70 g/dL (11.27-16.99) 08/03/24 21:35 Hct 39.3 % (36-47) 08/03/24 21:35 MCV 84.9 fl (85-98) L 08/03/24 21:35 MCH 27.4 pg (27-33) 08/03/24 21:35 MCHC 32.3 g/dL (30-55) 08/03/24 21:35 RDW 12.2 % (12.1-15.1) 08/03/24 21:35 Plt Count 248 10^3/cmm (157-399) 08/03/24 21:35 MPV 11.0 fL (7.4-10.4) H 08/03/24 21:35 Neut % (Auto) 60.4 % 08/03/24 21:35 Lymph % (Auto) 29.0 % 08/03/24 21:35 Hemphill % (Auto) 6.4 % 08/03/24 21:35 Eos % (Auto) 3.3 % 08/03/24 21:35 Baso % (Auto) 0.5 % 08/03/24 21:35 Neut # (Auto) 4.64 10^3/uL (1.8-7.7) 08/03/24 21:35 Lymph # (Auto) 2.2 10^3/uL (0.8-4.8) 08/03/24 21:35 [place]ill # (Auto) 0.5 10^3/uL (0.2-0.9) 08/03/24 21:35 Eos # (Auto) 0.3 10^3/uL (0.0-0.8) 08/03/24 21:35 Baso # (Auto) 0.0 10^3/uL (0.0-0.1) 08/03/24 21:35 Nucleated RBC % (auto) 0 % 08/03/24 21:35 Nucleated RBCs # 0.0 /100WBC 08/03/24 21:35 Sodium 132 mmol/L (136-145) L 08/03/24 21:35 Potassium 4.0 mmol/L (3.5-5.1) 08/03/24 21:35 Chloride 98 mmol/L (98-107) 08/03/24 21:35 Carbon Dioxide 21 mmol/L (22-29) L 08/03/24 21:35 Anion Gap 17.0 (5-19) 08/03/24 21:35 BUN 15 mg/dL (6-20) 08/03/24 21:35 Creatinine 0.4 mg/dL (0.5-0.9) L 08/03/24 21:35 GFR Calculation 174.2 mL/min (90-130) H 08/03/24 21:35 Glucose 239 mg/dL (65-115) H 08/03/24 21:35 Calculated Osmolality 283 mOsm/kg (285-295) L 08/03/24 21:35 Calcium 9.0 mg/dL (8.5-10.5) 08/03/24 21:35 Total Bilirubin 0.2 mg/dL (0.15-1.2) 08/03/24 21:35 AST 24 U/L (0-32) 08/03/24 21:35 ALT 24 U/L (0-33) 08/03/24 21:35 Alkaline Phosphatase 66 U/L (35-105) 08/03/24 21:35 Troponin T Baseline < 6 ng/L (0-10) 08/03/24 21:35 Troponin T 120 Minute 6.00 ng/L (0-10) 08/03/24 23:40 Delta Troponin T 0.83325 ABS# (0-10) 08/03/24 23:40 Total Protein 6.6 g/dL (6.6-8.7) 08/03/24 21:35 Albumin 3.6 g/dL (3.5-5.2) 08/03/24 21:35 Globulin 3.0 g/dL (1.3-4.6) 08/03/24 21:35 Lipase 32 U/L (13-60) 08/03/24 21:35 All radiology interpretation(s) finalized by discharge Discharge Plan Discharge Patient Disposition: Home Clinical Impression: Non-cardiac chest pain Condition: Stable Prescriptions: No Action fluorouracil [Efudex] 5 % cream 1 applic topical DAILY Qty: 40 0RF (DME) PTT Supinator See Rx Instructions .Route .MEDSUPPLY Qty: 1 0RF Rx Instructions: As directed (DME) Dexcom G7 Variety Lathe Operator Misc See Rx Instructions .Route Qty: 1 0RF Rx Instructions: As directed methylprednisolone [Medrol (Jason)] 4 mg tablets,dose pack See Rx Instructions PO PER PKG DIR Qty: 21 0RF Rx Instructions: PO PER PKG DIR (DME) Dexcom G7 Sensor Device See Rx Instructions .Route Qty: 3 3RF Rx Instructions: As directed (DME) Dexcom G7 Variety Lathe Operator Misc See Rx Instructions .Route Qty: 1 0RF Rx Instructions: As directed (DME) Dexcom G7 Sensor Device See Rx Instructions .Route Qty: 3 3RF Rx Instructions: As directed (DME) fast form See Rx Instructions .Route .MEDSUPPLY Qty: 1 0RF Rx Instructions: As directed (DME) Cock Up Wrist Brace See Rx Instructions .Route .MEDSUPPLY Qty: 1 0RF Rx Instructions: As directed sulfamethoxazole-trimethoprim 800-160 mg tablet 1 tab PO BID 10 Days Qty: 20 0RF permethrin [Elimite] 5 % cream 1 applic topical Q14D Qty: 60 0RF Rx Instructions: apply second treatment 14 days after first treatment if live lice remain meloxicam 15 mg tablet 15 mg PO DAILY Qty: 30 1RF (DME) AFO to left See Rx Instructions .Route .MEDSUPPLY Qty: 1 0RF Rx Instructions: As directed pioglitazone [Actos] 45 mg tablet 45 mg PO DAILY Qty: 90 1RF atorvastatin 20 mg tablet 20 mg PO DAILY Qty: 90 1RF metformin 500 mg tablet extended release 24 hr See Rx Instructions .ROUTE .COMPLEX Qty: 360 0RF Dose Instruction: Take 2 tablets by mouth twice daily Rx Instructions: Take 2 tablets by mouth twice daily (DME) Diabetic Shoes with 3 pairs of Custom Orthotics See Rx Instructions .ROUTE .MEDSUPPLY Qty: 1 0RF Rx Instructions: As directed by [employer] Vo 4.5 mg/0.5 mL pen injector See Rx Instructions .ROUTE .COMPLEX Qty: 2 2RF Dose Instruction: INJECT 4.5MG SUBCUT ONCE WEEKLY Rx Instructions: INJECT 4.5MG SUBCUT ONCE WEEKLY insulin glargine [Lantus Solostar U-100 Insulin] 100 unit/mL (3 mL) insulin pen See Rx Instructions .ROUTE .COMPLEX Qty: 45 1RF Dose Instruction: INJECT 50 UNITS SUBCUTANEOUSLY ONCE DAILY Rx Instructions: INJECT 50 UNITS SUBCUTANEOUSLY ONCE DAILY albuterol sulfate 90 mcg/actuation HFA aerosol inhaler 2 puff INHALATION Q6H PRN (Reason: Shortness Of Breath) ferrous gluconate 324 mg (37.5 mg iron) Tablet 324 mg PO EVERY OTHER DAY Qty: 90 0RF Naprosyn 500 mg tablet 500 mg PO BID PRN (Reason: pain) Qty: 20 0RF Discharge Orders: Discharge ED (Routine); Ordered 08/04/24 Ordered By: Rosa Isela Durham Discharge Diet: Usual diet Discharge Activity: Resume usual activity Patient Instructions: Noncardiac Chest Pain (ED), Opioid Safety, Pain Management Activity Restrictions/Additional Instructions: Thank you for choosing [facility] for your healthcare needs today. Please realize this is an emergency room and that we are providing you with a medical screening exam and this may not be complete and all inclusive of all the testing and or work up that you may need to determine your ailment or severity of your illness. You have been screened and evaluated and felt safe for discharge. Health conditions do change or evolve sometimes and as such it is important that you follow up with your Primary Doctor to be re checked, 3-5 days is a general good time frame for follow up. 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
--- NOTE | 2024-08-03 21:27 | XRR_ITS ---
PROCEDURE INFORMATION: Exam: XR Chest Exam date and time: 08/03/2024 9:36 PM Age: 44 years old Clinical indication: Pain; Chest pressure; Additional info: Chest pain TECHNIQUE: Imaging protocol: Radiologic exam of the chest. Views: 1 view. COMPARISON: CT angio chest PE protcl [id number] 08/20/2021 12:15 AM FINDINGS: Lungs: Unremarkable. No consolidation. Pleural spaces: Unremarkable. No pleural effusion. No pneumothorax. Heart/Mediastinum: Unremarkable. No cardiomegaly. Bones/joints: Unremarkable. XR/XR chest 1V portable [id number] IMPRESSION: No acute findings.
--- NOTE | 2024-08-03 21:27 | CTR_ITS ---
PROCEDURE INFORMATION: Exam: CT Cervical Spine Without Contrast Exam date and time: 08/03/2024 10:03 PM Age: 44 years old Clinical indication: Neck pain TECHNIQUE: Imaging protocol: Computed tomography of the cervical spine without contrast. Radiation optimization: All CT scans at this facility use at least one of these dose optimization techniques: automated exposure control; mA and/or kV adjustment per patient size (includes targeted exams where dose is matched to clinical indication); or iterative reconstruction. COMPARISON: CT cervical spin wo con* [id number] 08/08/2023 8:10 PM RADIATION DOSE METRICS: Total DLP (mGy-cm): 315.47 FINDINGS: Bones: No acute fracture. Normal alignment. No significant disc bulge or herniation. C5-C6 posterior disc osteophyte complex resulting in mild spinal canal narrowing. Varying degrees of mild neural foraminal narrowing from multilevel degenerative. Lungs: Lung apices are normal. Soft tissues: Unremarkable. CT/CT cervical spin wo con* [id number] IMPRESSION: No acute findings.
[2024-08-03 21:44] LABS: Basophils % 0.5 %; Eosinophils # 0.3 10^3/uL (0.0-0.8); Eosinophils % 3.3 %; Hematocrit 39.3 % (36-47); Lymphocytes # 2.2 10^3/uL (0.8-4.8); Mean Corpuscular HGB Conc 32.3 g/dL (30-55); Mean Corpuscular Hemoglobin 27.4 pg (27-33); Mean Corpuscular Volume 84.9 fl (85-98); Monocytes # 0.5 10^3/uL (0.2-0.9); Monocytes % 6.4 %; Neutrophils # 4.64 10^3/uL (1.8-7.7); Neutrophils % 60.4 %; Nucleated Red Blood Cells % 0 %; Platelet Count 248 10^3/cmm (157-399); Red Blood Count 4.63 10^6/uL (3.85-5.65); Red Cell Distribution Width 12.2 % (12.1-15.1); White Blood Count 7.68 10^3/uL (3.29-11.43)
[2024-08-03 22:03] LABS: Troponin(5th) Baseline < 6 ng/L (0-10)
[2024-08-03 22:06] LABS: Albumin Level 3.6 g/dL (3.5-5.2); Alkaline Phosphatase 66 U/L (35-105); Blood Urea Nitrogen 15 mg/dL (6-20); Carbon Dioxide 21 mmol/L (22-29); Chloride 98 mmol/L (98-107); Creatinine Clr Calc Pharmacy 219.8644; Glomerular Filtration Rate 174.2 mL/min (90-130); Glucose 239 mg/dL (65-115); Lipase 32 U/L (13-60); Osmolality Calculated 283 mOsm/kg (285-295); Sodium 132 mmol/L (136-145); Total Bilirubin 0.2 mg/dL (0.15-1.2); Total Protein 6.6 g/dL (6.6-8.7)
[2024-08-03 22:08] LABS: Alanine Aminotransferase 24 U/L (0-33); Aspartate Amino Transferase 24 U/L (0-32)
--- NOTE | 2024-08-03 22:14 | ECG_ITS ---
[facility] Test Date: 2024-08-03 Pat Name: Rimma Vera Department: Room: Gender: Female Shipping Manager: : 1980 Requested By: Oliver Obando Order Number: [id number] Shara MD: Miguel Talavera M.D. Measurements Intervals [place] Rate: 77 P: 50 AR: 192 QRS: 79 QRSD: 91 T: 39 QT: 388 QTc: 441 Interpretive Statements SINUS RHYTHM LOW QRS VOLTAGE IN PRECORDIAL LEADS [QRS DEFLECTION < 1.0 mV IN CHEST LEADS] Compared to ECG 08/19/2021 21:52:06 No significant changes Electronically Signed On 08-04-2024 21:54:50 ONLINE MEDIA DIRECTOR by Miguel Talavera M.D. [email or web address]
[2024-08-04 00:09] LABS: Troponin 5 2HR Delta 0.00001 ABS# (0-10)
[2024-08-04 00:30] VITALS: BP 137/78; PULSE 90; RESP 18; O2SAT 97
[2024-08-04 00:44] VITALS: BP 137/78; PULSE 90; O2SAT 97
== END 2024-08-04 00:45 | disposition home or self-care (01) ==
PROVIDERS: Emergency Medicine; Emergency Provider Emergency Medicine
DX: R07.89 Other chest pain (principal); Z79.4 Long term (current) use of insulin; Z87.891 Personal history of nicotine dependence; E11.9 Type 2 diabetes mellitus without complications
CPT/HCPCS: 36415; 71045; 72125; 80053; 83690; 84484; 85025; 93005; 99285

== ENCOUNTER → 2024-09-28 13:40 | Outpatient (BNVA) | payer MEDICAID, SELFPAY | PROVIDERS: Visit Provider Podiatrist Foot & Ankle Surgery | DX: M21.41 Flat foot [pes planus] (acquired), right foot; M21.42 Flat foot [pes planus] (acquired), left foot; E11.42 Type 2 diabetes mellitus with diabetic polyneuropathy; M76.822 Posterior tibial tendinitis, left leg; M72.2 Plantar fascial fibromatosis; Z79.4 Long term (current) use of insulin; Z79.84 Long term (current) use of oral hypoglycemic drugs | CPT/HCPCS: 73630 ==

== ENCOUNTER 2024-10-07 10:17 | Outpatient (CLI) | payer MEDICAID, SELFPAY ==
--- NOTE | 2024-10-07 11:45 | MR_ITS ---
WS: [id number] EXAMINATION: MR foot LT wo con* [id number] ORDER DATE: 10/07/2024 10:44 AM HISTORY: possible stress fracture of heel CONTRAST: None. TECHNIQUE: Sagittal T1, sagittal STIR, coronal PD, coronal T2, axial T1, axial T2, and axial PD imaging with fat saturation technique. FINDINGS: Pes planus. Dorsal calcaneal enthesophyte. Plantar osteophyte. Prominent plantar osteophyte demonstrates bony edema with cortical irregularity and surrounding soft tissue edema suspicious for small nondisplaced stress fracture involving the osteophyte. Some of the edema may be reactive and i nflammatory. History of prior plantar fascia surgery. Normal signal in the plantar aponeurosis. Distal Achilles insertion is normal. Normal talar dome. Normal tibiotalar joint. Normal calcaneal neck. Normal cuboid. Base of the fifth metatarsal is normal. Small amount of tenosynovitis along the peroneal tendon sheath. Small amount of tenosynovitis involving the tibialis posterior. Normal visualized extensor compartment tendons. Normal medial and lateral malleolus. MR/MR foot LT wo con* [id number] IMPRESSION: 1. Prior postoperative changes plantar fasciitis surgery. 2. Diffuse edema in the calcaneal plantar osteophyte with cortical irregularit y suspicious for small nondisplaced fracture/stress fracture. Surrounding soft tissue edema. Some this may be inflammatory or reactive. 3. Plantar aponeurosis is otherwise normal in appearance. 4. No other acute findings.
== END 2024-10-07 10:18 | disposition home or self-care (01) ==
LOC: RAD 10:19
PROVIDERS: Visit Provider Podiatrist Foot & Ankle Surgery
DX: M79.672 Pain in left foot (principal); Z98.890 Other specified postprocedural states; M25.775 Osteophyte, left foot; R93.6 Abnormal findings on diagnostic imaging of limbs; M65.872 Other synovitis and tenosynovitis, left ankle and foot
CPT/HCPCS: 73718